=== PATIENT | male | born 1955 | race Caucasian/White ===

== ENCOUNTER 2017-05-04 20:23 | Inpatient (IN) | payer OTHER ==
[~2017-05-04] VITALS: Ht 162.6 cm; Wt 67.0 kg
[~2017-05-04 20:23] MED LIST: ASPI-664 PO; LISI-313 PO; METF500T4 PO; SIMV20TA2 PO
[2017-05-04 22:18] VITALS: PULSE 96
[2017-05-04 22:28] VITALS: BP 130/74; RESP 16
[2017-05-04 23:12] VITALS: Ht 162.6 cm; Wt 67.0 kg
[2017-05-04] MEDS ORDERED: LISI40TA9 PO (23:43)
[2017-05-05] VITALS (12 sets, daily range): BP systolic 93–126; BP diastolic 54–74; PULSE 74–92; RESP 16–20
[2017-05-05] MEDS ORDERED: ONDANSETRON 4 MG INJ IV PRN
[2017-05-05] MEDS ORDERED: NACL 0.9% 3 ML SYG IV SCH
[2017-05-05] MEDS ORDERED: ACETAMINOPHEN 325 MG TAB PO PRN
[2017-05-05 01:23] LABS: ADD SCAN DIFF NO
[2017-05-05 01:42] LABS: BASOPHIL # 0.1 10^3/ul (0.0-0.1); BASOPHILS % 0.7 % (0.0-2.0); EOSINOPHILS # 0.2 10^3/ul (0.0-0.5); EOSINOPHILS % 2.4 % (0.0-7.0); HEMATOCRIT 35.3 % (42.0-52.0); HEMOGLOBIN 11.6 g/dl (14.0-18.0); LYMPHOCYTES % 27.8 % (15.0-51.0); MEAN CORPUSCULAR HGB CONC 32.9 g/dl (32.0-37.0); MEAN CORPUSCULAR VOLUME 100.6 fl (82.0-101.0); MEAN PLATELET VOLUME 10.7 fl (7.4-10.4); MONOCYTE # 0.9 10^3/ul (0.3-0.9); MONOCYTES % 11.9 % (0.0-11.0); NEUTROPHIL # 4.1 10^3/ul (1.6-7.5); NEUTROPHILS % 56.8 % (39.0-77.0); PLATELET COUNT 199 10^3/UL (140-415); RED BLOOD COUNT 3.51 10^6/ul (4.70-6.10); RED CELL DISTRIBUTION WIDTH 12.4 % (11.5-14.5); WHITE BLOOD COUNT 7.2 10^3/ul (4.8-10.8)
[2017-05-05 02:12] LABS: ALBUMIN 4.6 g/dl (3.3-4.9); ALBUMIN/GLOBULIN RATIO 1.58; BILIRUBIN,INDIRECT 0.3 mg/dl (0-1.1); BILIRUBIN,TOTAL 0.3 mg/dl (0.2-1.3); CALCIUM 9.6 mg/dl (8.4-10.2); CREATININE 2.2 mg/dl (0.61-1.24); POTASSIUM 4.8 mmol/L (3.5-5.1); TOTAL PROTEIN 7.5 g/dl (6.1-8.1)
[2017-05-05 03:53] LABS: ADD UMIC YES; UR ASCORBIC ACID NEGATIVE (NEGATIVE); UR BILIRUBIN (Dip) NEGATIVE (NEGATIVE); UR BLOOD (Dip) 1+ mg/dL (NEGATIVE); UR CLARITY CLEAR (CLEAR); UR COLOR YELLOW (YELLOW); UR GLUCOSE (Dip) NEGATIVE (NEGATIVE); UR KETONES (Dip) NEGATIVE (NEGATIVE); UR LEUKOCYTE ESTERASE (Dip) NEGATIVE Leu/ul (NEGATIVE); UR NITRITE (Dip) NEGATIVE (NEGATIVE); UR RBC 0 /HPF (0-5); UR SPECIFIC GRAVITY (Dip) 1.014 (1.003-1.030); UR TOTAL PROTEIN (Dip) NEGATIVE (NEGATIVE); UR UROBILINOGEN (Dip) NEGATIVE (NEGATIVE)
[2017-05-05] MEDS ORDERED: PANTOPRAZOLE 40 MG INJ IV SCH (06:00)
[2017-05-05 07:58] LABS: ADD SCAN DIFF NO
[2017-05-05 08:13] LABS: BASOPHILS % 0.7 % (0.0-2.0); EOSINOPHILS # 0.2 10^3/ul (0.0-0.5); EOSINOPHILS % 2.6 % (0.0-7.0); HEMATOCRIT 36.1 % (42.0-52.0); HEMOGLOBIN 11.9 g/dl (14.0-18.0); LYMPHOCYTES # 1.6 10^3/ul (0.8-2.9); LYMPHOCYTES % 26.7 % (15.0-51.0); MEAN CORPUSCULAR HEMOGLOBIN 33.6 pg (29.0-33.0); MEAN PLATELET VOLUME 10.9 fl (7.4-10.4); MONOCYTE # 0.5 10^3/ul (0.3-0.9); MONOCYTES % 9.2 % (0.0-11.0); NEUTROPHIL # 3.6 10^3/ul (1.6-7.5); NEUTROPHILS % 60.6 % (39.0-77.0); PLATELET COUNT 190 10^3/UL (140-415); RED BLOOD COUNT 3.54 10^6/ul (4.70-6.10); RED CELL DISTRIBUTION WIDTH 12.4 % (11.5-14.5); WHITE BLOOD COUNT 5.9 10^3/ul (4.8-10.8)
[2017-05-05 08:39] LABS: ALBUMIN 4.8 g/dl (3.3-4.9); ALBUMIN/GLOBULIN RATIO 1.71; BILIRUBIN,INDIRECT 0.4 mg/dl (0-1.1); BILIRUBIN,TOTAL 0.4 mg/dl (0.2-1.3); CALCIUM 9.6 mg/dl (8.4-10.2); CHOL/HDL RATIO 6.2 RATIO; CREATININE 1.66 mg/dl (0.61-1.24); MAGNESIUM 2.6 mg/dl (1.7-2.5); POTASSIUM 5.5 mmol/L (3.5-5.1); TOTAL PROTEIN 7.6 g/dl (6.1-8.1)
--- NOTE | 2017-05-05 08:43 | HP ---
Date/Time of Note Date/Time of Note DATE: 05/05/17 TIME: 08:32 Assessment/Plan VTE Prophylaxis VTE Prophylaxis Intervention: SCD's Lines/Catheters IV C[facility]ter [facility]from [facility]): Saline Lock Assessment/Plan Chief Complaint/Hosp Course This is a 62-year-old male being admitted to the telemetry floor for: #1 Chronic kidney disease: Patient is nonoliguric. His potassium at the transferring facility was 5.4. BUN of 95 and creatinine of 4.02. Ultrasound of the kidneys from the transferring facility showed echogenic kidneys, please see u/s report for further details. Will consult nephrology for further treatment strategy. Will repeat electrolytes in the a.m. Will check urine sodium. Will hold ADRIANO inhibitor #2 neck pain: Patient had CT of the head the density was order x-rays of the neck to further evaluate. May need additional imaging studies. #3 diabetes mellitus: We will hold ADRIANO at this time secondary to #1. Will check hemoglobin A1c with the patient on insulin sliding scale. #4 hypertension: We will hold ADRIANO inhibitor for now. Secondary to #1 continue to monitor blood pressure #5 DVT and GI prophylaxis: SCDs, Protonix Further treatment strategy as per the clinical course Problems: HPI/ROS Admit Date/Time Admit Date/Time May 04, 2017 at 22:02 Hx of Present Illness Chief complaint: Neck pain and weakness 3 weeks This is a 62-year-old male being transferred from an outside facility with neck pain and weakness for the past 3 weeks. Patient states that he has been noticing aching pain in his neck as well as shoulders. Also states that he has been weak. Denies any nausea vomiting or diarrhea. Allergies: NKDA Medications: See [facility] Const: As per HPI Eyes : No pain discharge or redness or change in visual acuity ENT: No pain, sore throat, congestion, congestion, dysphagia or discharge Respiratory: No shortness of breath, cough, sputum, wheezing, or pleuritic pain Cardiovascular: No chest pain, palpitation, PND, or edema GI : no change in appetite, abdominal pain, nausea, vomiting, diarrhea, constipation, or change in the color his stool Genitourinary: No dysuria, hematuria, flank pain , discharge or CVA tenderness Musculoskeletal: As per HPI Skin: No rash, bruising or hives Neuro: No headache, dizziness, syncope, seizure, focal weakness Endocrine: No polyuria, polydipsia, temperature intolerance Psych: No hallucination, depression, anxiety or suicidal ideation PMH/Family/Social Past Medical History Diabetes mellitus, hypertension, CKD Past Surgical History Hernia repair Family History Significant Family History: other (Diet: Throat cancer) Social History Alcohol Use: none Smoking Status: Former smoker Drug Use: none Exam/Review of Systems Vital Signs Vitals Vital Signs Date Time Temp Pulse Resp B/P Pulse Ox O2 Delivery O2 Flow Rate FiO2 05/05/17 07:41 98.4 71 18 93/63 98 Intake and Output 05/04/17 05/04/17 05/05/17 15:00 23:00 07:00 Intake Total 400 ml Output Total 600 ml Balance -200 ml Exam Exam General: Patient is well-developed well-nourished The patient is alert oriented -3 lying comfortably in bed. HEENT: Atraumatic, normocephalic. The pupils are equal, round and reactive. Extraocular motor are intact Neck: Tenderness to palpation along the posterior neck, no step-off appreciated Chest: Nontender Lungs: Clear to auscultation bilaterally no crackles rales or wheezing Heart: Normal S1-S2, Regular rhythm and rate. No murmur, S3, or S4 Abdomen: Soft , nontender, nondistended , bowel sounds are present. No guarding no rebound tenderness , No masses or organomegaly. No costovertebral temporal angle mass Extremities: Normal to inspection, no edema no cyanosis Neurologic: Normal mental status, speech normal, cranial nerves II through XII are intact, motor and sensory are intact, no focal weakness Additional Comments CT of the head was unremarkable Ultrasound of the kidneys: Echogenic kidneys White blood cell count 10 hemoglobin 12 hematocrit 38 platelets 186 Sodium 138 potassium 5.4 chloride 102 bicarb 17 BUN 95 creatinine 4.02 Please see transfer paperwork for further details regarding labs and imaging studies. Labs Result Diagram: 05/05/17 0700 05/05/17 0045 Medications Medications Current Medications Ondansetron HCl (Zofran Inj) 4 mg Q6H PRN IV NAUSEA AND/OR VOMITING; Start at 00:00 Acetaminophen (Tylenol Tab) 650 mg Q6H PRN PO PAIN LEVEL 1-3 OR FEVER; Start at 00:00 Pantoprazole (Protonix Iv) 40 mg DAILY@06 IV Last administered on 05/05/17 06: 14; Admin Dose 40 MG; Start 05/05/17 at 06:00 Aspirin (Halfprin) 81 mg DAILY PO ; Start 05/05/17 at 09:00 Atorvastatin Calcium (Lipitor) 10 mg DAILY@ PO ; Start 05/05/17 at 21:00 ANMOL KNOWLES May 05, 2017 08:42
[2017-05-05] MEDS: ASPIRIN (EC) 81 MG TAB PO SCH (08:57)
[2017-05-05] MEDS ORDERED: GLUCOSE GEL 15 GRAM TUBE BUCCAL PRN (09:00)
[2017-05-05] MEDS ORDERED: DEXTROSE 50% 50 ML SYRINGE IV PRN ×2 (09:00)
[2017-05-05] MEDS ORDERED: GLUCAGON 1 MG INJ IM PRN (09:00)
[2017-05-05] MEDS ORDERED: GLUCOSE GEL 15 GRAM TUBE PO PRN ×2 (09:00)
[2017-05-05 09:30] LABS: THYROID STIMULATING HORMONE 1.68 MIU/L (0.465-4.680)
--- NOTE | 2017-05-05 09:38 | PN ---
Date/Time of Note Date/Time of Note DATE: 05/05/17 TIME: 09:08 Assessment/Plan VTE Prophylaxis VTE Prophylaxis Intervention: SCD's Lines/Catheters IV Catheter Type (from [facility]rs[facility]): Saline Lock Assessment/Plan Assessment/Plan This is a 62-year-old male being admitted to the telemetry floor for: #1 Dizziness and Neck pain * May be 2/2 #2, but will need CVA workup #2 BOYD with Hyperkalemia r/o CKD: patient has never been told in the past that he has kidney problems #3 Neck pain: ?Msc spasm #4 Diabetes mellitus type 2: fair control #5 Hypertension: controlled PLAN: * MRI brain / carotids / CT neck / msc relaxant / 2D echo * IVF / nephrology consult / serial labs / ?renal USS * Continue SSI and switch home metformin for Lantus / start ACEi when renal function improved * Supportive care * DVT and GI prophylaxis: SCDs, Protonix * Further treatment strategy as per the clinical course Subjective 24 Hr Interval Summary Free Text/Dictation Patient seen and examined. feels slightly better Dizziness is somewhat improved, but continues to have pain in posterior neck Exam/Review of Systems Vital Signs Vitals Vital Signs Date Time Temp Pulse Resp B/P Pulse Ox O2 Delivery O2 Flow Rate FiO2 05/05/17 08:00 76 05/05/17 07:41 98.4 18 93/63 98 Intake and Output 05/04/17 05/04/17 05/05/17 15:00 23:00 07:00 Intake Total 400 ml Output Total 600 ml Balance -200 ml Exam Constitutional: alert, oriented, No distress Psych: anxiety Head: atraumatic, normocephalic Eyes: PERRL, No icteric ENMT: mucosa pink and moist Neck: other (?msc spasm), No bruits, No jvd Respiratory: clear to auscultation, diminished breath sounds, No crackles/rales, No labored breathing, No wheezing Cardiovascular: regular rate and rhythm, No murmurs/extra sounds Gastrointestinal: bowel sounds, non-tender, soft Extremities: No edema Neurological: No focal weakness Results Result Diagram: 05/05/17 0700 05/05/17 0045 Results 24 hrs Laboratory Tests Test 05/04/17 22:51 05/05/17 00:45 05/05/17 01:25 05/05/17 07:00 Bedside Glucose 171 White Blood Count 7.2 5.9 Red Blood Count 3.51 #L 3.54 L Hemoglobin 11.6 #L 11.9 L Hematocrit 35.3 #L 36.1 L Mean Corpuscular Volume 100.6 102.0 H Mean Corpuscular Hemoglobin 33.0 33.6 H Mean Corpuscular Hemoglobin Concent 32.9 33.0 Red Cell Distribution Width 12.4 12.4 Platelet Count 199 190 Mean Platelet Volume 10.7 #H 10.9 H Neutrophils % 56.8 60.6 Lymphocytes % 27.8 26.7 Monocytes % 11.9 H 9.2 Eosinophils % 2.4 2.6 Basophils % 0.7 0.7 Nucleated Red Blood Cells % 0.0 0.0 Neutrophils # 4.1 3.6 Lymphocytes # 2.0 1.6 Monocytes # 0.9 0.5 Eosinophils # 0.2 0.2 Basophils # 0.1 0.0 Nucleated Red Blood Cells # 0.0 0.0 Sodium Level 135 Potassium Level 4.8 Chloride Level 107 Carbon Dioxide Level 22 Anion Gap 11 Blood Urea Nitrogen 77 H Creatinine 2.20 H Glucose Level 131 Calcium Level 9.6 Total Bilirubin 0.3 Direct Bilirubin 0.00 Indirect Bilirubin 0.3 Aspartate Amino Transf (AST/SGOT) 17 Alanine Aminotransferase (ALT/SGPT) 20 Alkaline Phosphatase 58 Total Protein 7.5 Albumin 4.6 Globulin 2.90 Albumin/Globulin Ratio 1.58 Urine Color YELLOW Urine Clarity CLEAR Urine pH 5.0 Urine Specific [place] 1.014 Urine Ketones NEGATIVE Urine Nitrite NEGATIVE Urine Bilirubin NEGATIVE Urine Urobilinogen NEGATIVE Urine Leukocyte Esterase NEGATIVE Urine Microscopic RBC 0 Urine Microscopic WBC 0 Urine Hemoglobin 1+ H Urine Random Sodium 82 Urine Glucose NEGATIVE Urine Total Protein NEGATIVE Test 05/05/17 07:44 Bedside Glucose 153 Medications Medications Current Medications Ondansetron HCl (Zofran Inj) 4 mg Q6H PRN IV NAUSEA AND/OR VOMITING; Start at 00:00 Acetaminophen (Tylenol Tab) 650 mg Q6H PRN PO PAIN LEVEL 1-3 OR FEVER; Start at 00:00 Pantoprazole (Protonix Iv) 40 mg DAILY@06 IV Last administered on 05/05/17t 06: 14; Admin Dose 40 MG; Start 05/05/17 at 06:00 Aspirin (Halfprin) 81 mg DAILY PO Last administered on 05/05/17t 08:57; Admin Dose 81 MG; Start 05/05/17 at 09:00 Atorvastatin Calcium (Lipitor) 10 mg DAILY@21 PO ; Start 05/05/17 at 21:00 Diagnostic Test (Pha) (Accu-Chek) 1 ea 02 XX ; Start 05/06/17 at 02:00 Insulin Glargine (Lantus) 13 unit DAILY@08 SC ; Start 05/06/17 at 08:00 Diagnostic Test (Pha) (Accu-Chek) 1 ea 02 XX ; Start 05/06/17 at 02:00 Miscellaneous Information 1 ea NOTE XX ; Start 05/05/17 at 09:00 Glucose (Glutose) 15 gm Q15M PRN PO DECREASED GLUCOSE; Start 05/05/17 at 09:00 Glucose (Glutose) 22.5 gm Q15M PRN PO DECREASED GLUCOSE; Start 05/05/17 at 09: 00 Dextrose (D50w Syringe) 25 ml Q15M PRN IV DECREASED GLUCOSE; Start 05/05/17 at 09:00 Dextrose (D50w Syringe) 50 ml Q15M PRN IV DECREASED GLUCOSE; Start 05/05/17 at 09:00 Glucagon (Glucagen) 1 mg Q15M PRN IM DECREASED GLUCOSE; Start 05/05/17 at 09:00 Glucose (Glutose) 15 gm Q15M PRN BUCCAL DECREASED GLUCOSE; Start 05/05/17 at 09 :00 ANDRIY LEA May 05, 2017 09:18
--- NOTE | 2017-05-05 10:10 | CONS ---
Date/Time of Note Date/Time of Note DATE: 05/05/17 TIME: 10:05 Assessment/Plan Assessment/Plan Chief Complaint/Hosp Course 1. CKD3- + ARF- agree with holding acei. Watch uop, i/o, avoid nephrotoxins, watch uop. -likely cause hemodynamic, ua bland. -need to r/o obstruction, will repeat us. -check urine lytes to eval fena. 2. htn- cont meds, no acei for now 3. hyperkalemia- cont ivf, s/p kayexalate Problems: Consultation Date/Type/Reason Admit Date/Time May 04, 2017 at 22:02 Date of Consultation: May 05, 2017 Reason for Consultation ARF/CKD/Hyperkalemia Hx of Present Illness 62 y/o male from outside facility admitted for weakness and lower back pain. Pt. has h/o ckd, rececnt us showed echogenic kidneys???baseline, on admit has arf and hyperkalemia. Pt. given kayexalate and taken off acei now feels better, creat cont to improve. Initial urine was bland and non reveling. case d/w rn at bedside. Constitutional: improved, no complaints Eyes: no complaints ENT: no complaints Respiratory: no complaints Cardiovascular: no complaints Gastrointestinal: no complaints Genitourinary: no complaints Skin: no complaints Neurologic: no complaints Endocrine: no complaints Lymphatic: no complaints Past Medical History Medical History: no pertinent history Past Surgical History Past Surgical Hx: no surgical history Social History Alcohol Use: none Smoking Status: Former smoker Drug Use: none Exam/Review of Systems Vital Signs Vitals Vital Signs Date Time Temp Pulse Resp B/P Pulse Ox O2 Delivery O2 Flow Rate FiO2 05/05/17 08:00 76 05/05/17 07:41 98.4 18 93/63 98 Intake and Output 05/04/17 05/04/17 05/05/17 15:00 23:00 07:00 Intake Total 400 ml Output Total 600 ml Balance -200 ml Exam Constitutional: alert, oriented, well developed Psych: nl mood/affect, no complaints, No anxiety, No confusion, No depression, No other, No suicidal Head: atraumatic, normocephalic Eyes: EOMI, PERRL, nl conjunctiva, nl lids, nl sclera ENMT: nl external ears & nose, nl lips & teeth, nl nasal mucosa & septum Neck: non-tender, supple Respiratory: clear to auscultation, normal air movement Cardiovascular: nl pulses, regular rate and rhythm Gastrointestinal: nl liver, spleen, non-tender, soft Musculoskeletal: joint tenderness, nl extremities to inspection, nl gait and stance Extremities: normal pulses Neurological: [employer] L[employer] WORK[employer] II-XII intact, nl mental status, nl speech, nl strength Results Result Diagram: 05/05/17 0700 05/05/17 0701 Results 24 hrs Laboratory Tests Test 05/04/17 22:51 05/05/17 00:45 05/05/17 01:25 05/05/17 07:00 Bedside Glucose 171 White Blood Count 7.2 5.9 Red Blood Count 3.51 #L 3.54 L Hemoglobin 11.6 #L 11.9 L Hematocrit 35.3 #L 36.1 L Mean Corpuscular Volume 100.6 102.0 H Mean Corpuscular Hemoglobin 33.0 33.6 H Mean Corpuscular Hemoglobin Concent 32.9 33.0 Red Cell Distribution Width 12.4 12.4 Platelet Count 199 190 Mean Platelet Volume 10.7 #H 10.9 H Neutrophils % 56.8 60.6 Lymphocytes % 27.8 26.7 Monocytes % 11.9 H 9.2 Eosinophils % 2.4 2.6 Basophils % 0.7 0.7 Nucleated Red Blood Cells % 0.0 0.0 Neutrophils # 4.1 3.6 Lymphocytes # 2.0 1.6 Monocytes # 0.9 0.5 Eosinophils # 0.2 0.2 Basophils # 0.1 0.0 Nucleated Red Blood Cells # 0.0 0.0 Sodium Level 135 Potassium Level 4.8 Chloride Level 107 Carbon Dioxide Level 22 Anion Gap 11 Blood Urea Nitrogen 77 H Creatinine 2.20 H Glucose Level 131 Calcium Level 9.6 Total Bilirubin 0.3 Direct Bilirubin 0.00 Indirect Bilirubin 0.3 Aspartate Amino Transf (AST/SGOT) 17 Alanine Aminotransferase (ALT/SGPT) 20 Alkaline Phosphatase 58 Total Protein 7.5 Albumin 4.6 Globulin 2.90 Albumin/Globulin Ratio 1.58 Urine Color YELLOW Urine Clarity CLEAR Urine pH 5.0 Urine Specific [place] 1.014 Urine Ketones NEGATIVE Urine Nitrite NEGATIVE Urine Bilirubin NEGATIVE Urine Urobilinogen NEGATIVE Urine Leukocyte Esterase NEGATIVE Urine Microscopic RBC 0 Urine Microscopic WBC 0 Urine Hemoglobin 1+ H Urine Random Sodium 82 Urine Glucose NEGATIVE Urine Total Protein NEGATIVE Test 05/05/17 07:01 05/05/17 07:44 Sodium Level 139 Potassium Level 5.5 H Chloride Level 110 Carbon Dioxide Level 19 L Anion Gap 16 Blood Urea Nitrogen 69 H Creatinine 1.66 H Glucose Level 168 Calcium Level 9.6 Magnesium Level 2.6 H Total Bilirubin 0.4 Direct Bilirubin 0.00 Indirect Bilirubin 0.4 Aspartate Amino Transf (AST/SGOT) 18 Alanine Aminotransferase (ALT/SGPT) 24 Alkaline Phosphatase 57 Total Protein 7.6 Albumin 4.8 Globulin 2.80 Albumin/Globulin Ratio 1.71 Triglycerides Level 246 H Cholesterol Level 212 H LDL Cholesterol, Calculated 129 HDL Cholesterol 34 Cholesterol/HDL Ratio 6.2 Thyroid Stimulating Hormone (TSH) 1.680 Bedside Glucose 153 Medications Medications Current Medications Ondansetron HCl (Zofran Inj) 4 mg Q6H PRN IV NAUSEA AND/OR VOMITING; Start at 00:00 Acetaminophen (Tylenol Tab) 650 mg Q6H PRN PO PAIN LEVEL 1-3 OR FEVER; Start at 00:00 Pantoprazole (Protonix Iv) 40 mg DAILY@06 IV Last administered on 05/05/17 06: 14; Admin Dose 40 MG; Start 05/05/17 at 06:00 Aspirin (Halfprin) 81 mg DAILY PO Last administered on 05/05/17 08:57; Admin Dose 81 MG; Start 05/05/17 at 09:00 Atorvastatin Calcium (Lipitor) 10 mg DAILY@21 PO ; Start 05/05/17 at 21:00 Diagnostic Test (Pha) (Accu-Chek) 1 ea 02 XX ; Start 05/06/17 at 02:00 Diagnostic Test (Pha) (Accu-Chek) 1 ea 02 XX ; Start 05/06/17 at 02:00 Miscellaneous Information 1 ea NOTE XX ; Start 05/05/17 at 09:00 Glucose (Glutose) 15 gm Q15M PRN PO DECREASED GLUCOSE; Start 05/05/17 at 09:00 Glucose (Glutose) 22.5 gm Q15M PRN PO DECREASED GLUCOSE; Start 05/05/17 at 09: 00 Dextrose (D50w Syringe) 25 ml Q15M PRN IV DECREASED GLUCOSE; Start 05/05/17 at 09:00 Dextrose (D50w Syringe) 50 ml Q15M PRN IV DECREASED GLUCOSE; Start 05/05/17 at 09:00 Glucagon (Glucagen) 1 mg Q15M PRN IM DECREASED GLUCOSE; Start 05/05/17 at 09:00 Glucose (Glutose) 15 gm Q15M PRN BUCCAL DECREASED GLUCOSE; Start 05/05/17 at 09 :00 Insulin Glargine (Lantus) 13 unit DAILY@08 SC ; Start 05/05/17 at 09:30 ESTHER COLÓN MD May 05, 2017 10:10
[2017-05-05 10:24] LABS: CREATINE KINASE 140 IU/L (23-200)
[2017-05-05] MEDS ORDERED: NA POLYST SULFON 15 GM/60 ML BTL PO ONE (10:30)
[2017-05-05] MEDS: INSULIN GLARGINE [LANtus] 3 ML PEN SC SCH (10:39)
[2017-05-05 10:45] LABS: CK-MB 1.05 ng/ml (0.0-2.4); TROPONIN-I < 0.012 ng/ml (0.00-0.12)
[2017-05-05] MEDS: SOD CHLORIDE 0.45% 1,000 ML IV SCH (10:45)
[2017-05-05] MEDS: INSULIN ASPART [NOVOLOG] 3 ML PEN SC SCH ×3 (11:50→20:38)
--- NOTE | 2017-05-05 11:53 | RADRPT ---
PROCEDURE: CT scan of the neck without contrast. CLINICAL INDICATION: Neck pain, dizziness TECHNIQUE: CT scan of the neck was performed. The patient was examined without the use of intrave nous iodinated contrast. No reported complications occurred. One or more of the following dose re duction techniques were used: Automated exposure control, Adjustment of the mA and/or kV according t o patient size, and/or use of iterative reconstruction technique. DOSE: CTDI = 9 mGy and the DLP = 230 mGy-cm. COMPARISON: None available FINDINGS: Evaluation of the soft tissues and vasculature is limited without contrast. No cervical lymphadenopathy. The bilateral parotid and submandibular glands are unremarkable The thyroid gland is unremarkable. No significant airway narrowing The bilateral prestyloid parapharyngeal spaces and retropharyngeal s paces are unremarkable. Carotid vascular calcifications. Paranasal sinus mucosal thickening without layering sinus fluid visualized. Multilevel degenerative changes of the cervical spine. Foraminal narrowings are mild to moderate le ft C3-4, severe right and mild left C4-5, moderate bilateral C5-6. No high-grade bony cervical spin al canal stenosis. The visualized lung apices are clear. IMPRESSION: Degenerative changes of the spine with multilevel foraminal narrowings as detailed. Carotid vascular calcifications. Paranasal sinus mucosal thickening without evidence of layering fluid. RPTAT: AA .Alverto Cm MD, MD Date Time Electronically viewed and signed by .Alverto Cm MD, on 05/05/2017 11:53 .T/
[2017-05-05] MEDS ORDERED: CYCLOBENZAPRINE 10 MG TAB PO PRN (13:00)
--- NOTE | 2017-05-05 13:26 | RADRPT ---
PROCEDURE: Renal US. CLINICAL INDICATION: Acute kidney injury. TECHNIQUE: Multiple sonographic images of the kidneys and urinary bladder were obtained. The imag es were reviewed on a PACS workstation. COMPARISON: No prior studies are available for comparison. FINDINGS: The right kidney measures 10.2 cm. The left kidney measures 10.6 cm. There is no renal mass. There is no hydronephrosis. There is no renal calculus. Renal parenchymal thickness is normal bilaterally. Echogenicity is normal bilaterally. The perirenal regions are normal with no fluid collection or mass. The urinary bladder is unremarkable. IMPRESSION: 1. Unremarkable renal ultrasound. RPTAT: QQ .Eduin Mathis MD, Date Time Electronically viewed and signed by .Eduin Mathis MD, on 05/05/2017 13:25 .R/
--- NOTE | 2017-05-05 13:42 | RADRPT ---
PROCEDURE: US carotid arteries. CLINICAL INDICATION: Dizziness. TECHNIQUE: Multiple sonographic images of the carotid arteries and vertebral arteries were obtaine d utilizing fraser scale, duplex, and color-flow imaging. The images were reviewed on a PACS workstati on. COMPARISON: No prior studies are available for comparison. FINDINGS: Evaluation of the right carotid bifurcation region reveals mild atherosclerotic disease. Evaluation of the left carotid bifurcation region reveals mild atherosclerotic disease. There is antegrade flow within the vertebral arteries bilaterally. RIGHT CAROTID MEASUREMENTS: Common Carotid [id number] (cm/sec) Internal Carotid Artery 91 (cm/sec) External Carotid Artery 64 (cm/sec) Vertebral Artery 64 (cm/sec) Internal Carotid/Common Carotid1.1 LEFT CAROTID MEASUREMENTS: Common Carotid [id number] (cm/sec) Internal Carotid Artery 73 (cm/sec) External Carotid Artery 83 (cm/sec) Vertebral Artery 57 (cm/sec) Internal Carotid/Common Carotid0.9 Validated velocity measurements with angiographic measurements. Velocity criteria are extrapolated f rom diameter data as defined by the Society of Radiologists in Ultrasound Consensus Conference. Radi ology 2003; 229;340-346. This study does indirectly reference the measurement of the distal ICA tylor meter as the denominator for stenosis measurement. IMPRESSION: 1. Less than 50% stenosis bilaterally in the internal carotid arteries. 2. Normal antegrade flow in the vertebral arteries bilaterally. RPTAT: QQ SRU Consensus Conference Criteria for the Diagnosis of Carotid Artery Stenosis* Degree of Stenosis, % ICA PSV, cm/sec Plaque Estimate, % ICA/CCA PSV Ratio Normal <125 None <2.0 <50 <125 <50 <2.0 50 69 125-230 >50 2.0-4.0 >70 but less than near occlusion >230 >50 <4.0 Near occlusion High, low, or undetectable Visible Variable Total occlusion Undetectable Visible, no detectable lumen Not applicable *Cartoid artery stenosis: fraser-scale and Doppler US diagnosis. Society of Radiologists in Ultrasound Consensus Conference. Radiology 2003; 229: 340-346 .Eduin Mathis MD, Date Time Electronically viewed and signed by .Eduin Mathis MD, on 05/05/2017 13:41 .R/
--- NOTE | 2017-05-05 18:50 | RADRPT ---
Echocardiogram Report Patient Name: JULIET HAMILTON Gender: Male Date: 1955 Study Date: 05-May-2017 Pvc Loader: Sandra Slater RDCS Location: 520 Ref. Physician: ANDRIY LEA Quality: Good Procedures: Transthoracic echocardiogram with complete 2D, M-Mode, and doppler examination. Indications: Dizziness. 2D/M Mode Doppler Measurement Value Normal Ranges Measurement Value Normal Ranges LVIDd 2D 3.7 3.5 - 5.6 cm MARIO Vmax 3.0 cm2 LVIDs 2D 2.3 2.1 - 4.1 cm MARIO VTI 3.0 cm2 LVPWd 2D 1.1 0.6 - 1.1 cm AV Mean Nate 0.9 m/sec IVSd 2D 1.1 0.6 - 1.1 cm AV Mean PG 3.8 mmHg AoR Diam 2D 3.0 2.0 - 3.7 cm AV Peak Nate 1.4 m/sec EDV 2D 59.6 cm3 AV Peak PG 7.4 mmHg ESV 2D 12.8 cm3 AV VTI 20.7 cm LA Dimen 2D 2.5 2.3 - 4.0 cm LVOT Mean Nate 0.7 m/sec LVOT Diam 2.2 cm LVOT Mean PG 2.2 mmHg LVOT Peak Nate 1.1 m/sec LVOT Peak PG 4.6 mmHg LVOT VTI 17.8 cm MV E Peak Nate 0.6 m/sec MV A Peak Nate 0.7 m/sec MV E/A 0.9 MV Decel Time 222 msec MV Decel [place] 3 MV E/A 0.9 TR Peak Nate 2.6 m/sec TR Peak PG 34.2 mmHg RVSP 37.2 mmHg Findings Left Ventricle: Normal left ventricular systolic function. Normal left ventricular cavity size. Tissue Doppler/Mitral Doppler indices are within normal limits. Right Ventricle: Mild enlargement of right ventricle. Left Atrium: The left atrium is normal in size. Right Atrium: Not well visualized. There is mild enlargement of right atrium. Mitral Valve: Mitral valve is not well visualized. Trace mitral regurgitation. Aortic Valve: Aortic valve not well visualized. Tricuspid Valve: Estimated peak PA systolic pressure 37 mmHg. There is mild tricuspid regurgitation. Pulmonic Valve: Normal pulmonic valve appearance. Pericardium: Not well visualized. Aorta: Normal aortic root. IVC: Normal size and normal respiratory collapse consistent with normal right atrial pressure. Pulmonary Artery: Not well visualized. Conclusions Technically difficult study with poor endocardial visualization. Normal left ventricular systolic function. Normal left ventricular cavity size. Tissue Doppler/Mitral Doppler indices are within normal limits. Mildly dilated RV with preserved systolic function. Mild tricuspid regurgitation. Estimated peak PA systolic pressure 37 mmHg based on RA pressure of 3 mmHg. Electronically Signed By: Bunny Squires 05-May-2017 18:49:42 -0700 Patient Name: JULIET HAMILTON Study Date: 05-May-2017 [id number]
[2017-05-05] MEDS: ATORVASTATIN 20 MG TAB PO SCH (20:35)
[2017-05-05] MEDS ORDERED: ATORVASTATIN 10 MG TAB PO SCH (21:00)
[2017-05-06] VITALS (12 sets, daily range): BP systolic 114–146; BP diastolic 67–81; PULSE 68–85; RESP 16–20
[2017-05-06] MEDS: SOD CHLORIDE 0.45% 1,000 ML IV SCH ×3 (01:17→20:26)
[2017-05-06] MEDS: ACCU-CHEK XX SCH ×4 (01:18→20:27)
[2017-05-06] MEDS: PANTOPRAZOLE (EC) 40 MG TAB PO SCH (06:12)
[2017-05-06 06:32] LABS: ADD SCAN DIFF NO
[2017-05-06 06:37] LABS: BASOPHIL # 0.1 10^3/ul (0.0-0.1); BASOPHILS % 0.7 % (0.0-2.0); EOSINOPHILS # 0.3 10^3/ul (0.0-0.5); HEMATOCRIT 34.8 % (42.0-52.0); HEMOGLOBIN 11.8 g/dl (14.0-18.0); LYMPHOCYTES # 1.8 10^3/ul (0.8-2.9); LYMPHOCYTES % 26.7 % (15.0-51.0); MEAN CORPUSCULAR HGB CONC 33.9 g/dl (32.0-37.0); MEAN CORPUSCULAR VOLUME 100.3 fl (82.0-101.0); MEAN PLATELET VOLUME 10.5 fl (7.4-10.4); MONOCYTE # 0.7 10^3/ul (0.3-0.9); MONOCYTES % 10.3 % (0.0-11.0); NEUTROPHIL # 3.9 10^3/ul (1.6-7.5); PLATELET COUNT 182 10^3/UL (140-415); RED BLOOD COUNT 3.47 10^6/ul (4.70-6.10); WHITE BLOOD COUNT 6.8 10^3/ul (4.8-10.8)
[2017-05-06 07:20] LABS: CALCIUM 9.4 mg/dl (8.4-10.2); CREATININE 1.09 mg/dl (0.61-1.24); MAGNESIUM 2.1 mg/dl (1.7-2.5); PHOSPHORUS 3.3 mg/dl (2.5-4.9)
[2017-05-06] MEDS ORDERED: INSULIN GLARGINE [LANtus] 3 ML PEN SC SCH (08:00)
[2017-05-06] MEDS: ASPIRIN (EC) 81 MG TAB PO SCH (09:23)
[2017-05-06] MEDS: INSULIN ASPART [NOVOLOG] 3 ML PEN SC SCH ×4 (09:27→20:22)
[2017-05-06] MEDS: INSULIN GLARGINE [LANtus] 3 ML PEN SC SCH (09:28)
--- NOTE | 2017-05-06 09:52 | CONS ---
Date/Time of Note Date/Time of Note DATE: 05/06/17 TIME: 09:42 Consult Date/Type/Reason Admit Date/Time May 04, 2017 at 22:02 Initial Consult Date 05/05/17 Subjective 62 y/o male from outside facility admitted for weakness and lower back pain. Pt. has h/o ckd, recent us showed echogenic kidneys???baseline, on admit has arf and hyperkalemia. Pt. given kayexalate and taken off acei now feels better, creat cont to improve. Initial urine was bland and non reveling. case d/w rn at bedside. Exam Constitutional: alert, oriented, well developed Psych: nl mood/affect, no complaints, No anxiety, No confusion, No depression, No other, No suicidal Head: atraumatic, normocephalic Eyes: EOMI, PERRL, nl conjunctiva, nl lids, nl sclera ENMT: nl external ears & nose, nl lips & teeth, nl nasal mucosa & septum Neck: non-tender, supple Respiratory: clear to auscultation, normal air movement Cardiovascular: nl pulses, regular rate and rhythm Gastrointestinal: nl liver, spleen, non-tender, soft Musculoskeletal: joint tenderness, nl extremities to inspection, nl gait and stance Extremities: normal pulses 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, nl mental status, nl speech, nl strength Objective Vital Signs Date Time Temp Pulse Resp B/P Pulse Ox O2 Delivery O2 Flow Rate FiO2 05/06/17 08:20 68 05/06/17 08:04 97.6 17 137/71 98 Intake and Output 05/05/17 05/05/17 05/06/17 15:00 23:00 07:00 Intake Total 600 ml 1850 ml Output Total 850 ml 1050 ml Balance -250 ml 800 ml Results/Medications Result Diagram: 05/06/17 0612 05/06/17 0614 Results 24 hrs Laboratory Tests Test 05/05/17 10:33 05/05/17 11:59 05/05/17 16:52 05/05/17 20:38 Bedside Glucose 111 133 171 139 Test 05/06/17 06:12 05/06/17 06:14 05/06/17 08:50 White Blood Count 6.8 Red Blood Count 3.47 L Hemoglobin 11.8 L Hematocrit 34.8 L Mean Corpuscular Volume 100.3 Mean Corpuscular Hemoglobin 34.0 H Mean Corpuscular Hemoglobin Concent 33.9 Red Cell Distribution Width 12.0 Platelet Count 182 Mean Platelet Volume 10.5 H Neutrophils % 58.0 Lymphocytes % 26.7 Monocytes % 10.3 Eosinophils % 4.0 Basophils % 0.7 Nucleated Red Blood Cells % 0.0 Neutrophils # 3.9 Lymphocytes # 1.8 Monocytes # 0.7 Eosinophils # 0.3 Basophils # 0.1 Nucleated Red Blood Cells # 0.0 Sodium Level 140 Potassium Level 5.0 Chloride Level 104 Carbon Dioxide Level 23 Anion Gap 18 H Blood Urea Nitrogen 51 H Creatinine 1.09 Glucose Level 128 # Calcium Level 9.4 Phosphorus Level 3.3 Magnesium Level 2.1 Bedside Glucose 146 Medications Current Medications Ondansetron HCl (Zofran Inj) 4 mg Q6H PRN IV NAUSEA AND/OR VOMITING; Start at 00:00 Acetaminophen (Tylenol Tab) 650 mg Q6H PRN PO PAIN LEVEL 1-3 OR FEVER; Start at 00:00 Aspirin (Halfprin) 81 mg DAILY PO Last administered on 05/05/17t 08:57; Admin Dose 81 MG; Start 05/05/17 at 09:00 Diagnostic Test (Pha) (Accu-Chek) 1 ea 02 XX ; Start 05/06/17 at 02:00 Diagnostic Test (Pha) (Accu-Chek) 1 ea 02 XX ; Start 05/06/17 at 02:00 Miscellaneous Information 1 ea NOTE XX ; Start 05/05/17 at 09:00 Glucose (Glutose) 15 gm Q15M PRN PO DECREASED GLUCOSE; Start 05/05/17 at 09:00 Glucose (Glutose) 22.5 gm Q15M PRN PO DECREASED GLUCOSE; Start 05/05/17 at 09: 00 Dextrose (D50w Syringe) 25 ml Q15M PRN IV DECREASED GLUCOSE; Start 05/05/17 at 09:00 Dextrose (D50w Syringe) 50 ml Q15M PRN IV DECREASED GLUCOSE; Start 05/05/17 at 09:00 Glucagon (Glucagen) 1 mg Q15M PRN IM DECREASED GLUCOSE; Start 05/05/17 at 09:00 Glucose (Glutose) 15 gm Q15M PRN BUCCAL DECREASED GLUCOSE; Start 05/05/17 at 09 :00 Insulin Glargine 13 unit 13 unit DAILY@08 SC Last administered on 05/05/17 10: 39; Admin Dose 13 UNIT; Start 05/05/17 at 09:30 Sodium Chloride (1/2 NS) 1,000 ml @ 80 mls/hr [id number] IV Last administered on 05/06/17 01:17; Admin Dose 80 MLS/HR; Start 05/05/17 at 10:30 Cyclobenzaprine HCl (Flexeril) 5 mg Q8H PRN PO neck pain; Start 05/05/17 at 13: 00 Atorvastatin Calcium (Lipitor) 20 mg DAILY@21 PO Last administered on 20:35; Admin Dose 20 MG; Start 05/05/17 at 21:00 Pantoprazole (Protonix Tab) 40 mg DAILY@06 PO Last administered on 05/06/17 06 :12; Admin Dose 40 MG; Start 05/06/17 at 06:00 Assessment/Plan Chief Complaint/Hosp Course 1. CKD + ARF-improved rapidly with volume and with holding acei. Watch uop, i/o , avoid nephrotoxins, watch uop. -likely cause hemodynamic, ua bland. -watch for diuretic phase of fredo with electrolyte wasting. 2. htn- cont meds, no acei for now 3. hyperkalemia- cont ivf, s/p kayexalate Problems: HERNAN MAURICIO MD May 06, 2017 09:52
--- NOTE | 2017-05-06 11:27 | PN ---
Date/Time of Note Date/Time of Note DATE: 05/06/17 TIME: 11:27 Assessment/Plan VTE Prophylaxis VTE Prophylaxis Intervention: SCD's Lines/Catheters IV [facility]ter [facility]from [facility]): Peripheral IV Urinary Cath still in place: No Assessment/Plan Assessment/Plan This is a 62-year-old male being admitted to the telemetry floor for: #1 Dizziness: likely 2/2 #2: now resolved #2 BOYD with Hyperkalemia : resolved #3 Neck pain likely 2/2 Msc spasm #4 Diabetes mellitus type 2: fair control #5 Hypertension: controlled PLAN: * f/u final MRI report / d/c home if normal * Continue SSI and Lantus / start ACEi * Supportive care * DVT and GI prophylaxis: SCDs, Protonix * Further treatment strategy as per the clinical course Subjective 24 Hr Interval Summary Free Text/Dictation patient seen and evaluated Feels well and is requesting to be discharged. Exam/Review of Systems Vital Signs Vitals Vital Signs Date Time Temp Pulse Resp B/P Pulse Ox O2 Delivery O2 Flow Rate FiO2 05/06/17 08:20 68 05/06/17 08:04 97.6 17 137/71 98 Intake and Output 05/05/17 05/05/17 05/06/17 15:00 23:00 07:00 Intake Total 600 ml 1850 ml Output Total 850 ml 1050 ml Balance -250 ml 800 ml Exam Constitutional: alert, oriented Head: atraumatic, normocephalic Neck: non-tender today , supple Respiratory: clear to auscultation Cardiovascular: regular rate and rhythm Gastrointestinal: S/ NT / ND / +BS Extremities: no edema, good radial pulses Results Result Diagram: 05/06/1712 05/06/17 0614 Results 24 hrs Laboratory Tests Test 05/05/17 11:59 05/05/17 16:52 05/05/17 20:38 05/06/17 06:12 Bedside Glucose 133 171 139 White Blood Count 6.8 Red Blood Count 3.47 L Hemoglobin 11.8 L Hematocrit 34.8 L Mean Corpuscular Volume 100.3 Mean Corpuscular Hemoglobin 34.0 H Mean Corpuscular Hemoglobin Concent 33.9 Red Cell Distribution Width 12.0 Platelet Count 182 Mean Platelet Volume 10.5 H Neutrophils % 58.0 Lymphocytes % 26.7 Monocytes % 10.3 Eosinophils % 4.0 Basophils % 0.7 Nucleated Red Blood Cells % 0.0 Neutrophils # 3.9 Lymphocytes # 1.8 Monocytes # 0.7 Eosinophils # 0.3 Basophils # 0.1 Nucleated Red Blood Cells # 0.0 Test 05/06/17 06:14 05/06/17 08:50 Sodium Level 140 Potassium Level 5.0 Chloride Level 104 Carbon Dioxide Level 23 Anion Gap 18 H Blood Urea Nitrogen 51 H Creatinine 1.09 Glucose Level 128 # Calcium Level 9.4 Phosphorus Level 3.3 Magnesium Level 2.1 Bedside Glucose 146 Medications Medications Current Medications Ondansetron HCl (Zofran Inj) 4 mg Q6H PRN IV NAUSEA AND/OR VOMITING; Start at 00:00 Acetaminophen (Tylenol Tab) 650 mg Q6H PRN PO PAIN LEVEL 1-3 OR FEVER; Start at 00:00 Aspirin (Halfprin) 81 mg DAILY PO Last administered on 05/06/17 09:23; Admin Dose 81 MG; Start 05/05/17 at 09:00 Diagnostic Test (Pha) (Accu-Chek) 1 ea 02 XX ; Start 05/06/17 at 02:00 Diagnostic Test (Pha) (Accu-Chek) 1 ea 02 XX ; Start 05/06/17 at 02:00 Miscellaneous Information 1 ea NOTE XX ; Start 05/05/17 at 09:00 Glucose (Glutose) 15 gm Q15M PRN PO DECREASED GLUCOSE; Start 05/05/17 at 09:00 Glucose (Glutose) 22.5 gm Q15M PRN PO DECREASED GLUCOSE; Start 05/05/17 at 09: 00 Dextrose (D50w Syringe) 25 ml Q15M PRN IV DECREASED GLUCOSE; Start 05/05/17 at 09:00 Dextrose (D50w Syringe) 50 ml Q15M PRN IV DECREASED GLUCOSE; Start 05/05/17 at 09:00 Glucagon (Glucagen) 1 mg Q15M PRN IM DECREASED GLUCOSE; Start 05/05/17 at 09:00 Glucose (Glutose) 15 gm Q15M PRN BUCCAL DECREASED GLUCOSE; Start 05/05/17 at 09 :00 Insulin Glargine 13 unit 13 unit DAILY@08 SC Last administered on 05/06/17 09: 28; Admin Dose 13 UNIT; Start 05/05/17 at 09:30 Sodium Chloride (1/2 NS) 1,000 ml @ 80 mls/hr [id number] IV Last administered on 05/06/17 01:17; Admin Dose 80 MLS/HR; Start 05/05/17 at 10:30 Cyclobenzaprine HCl (Flexeril) 5 mg Q8H PRN PO neck pain; Start 05/05/17 at 13: 00 Atorvastatin Calcium (Lipitor) 20 mg DAILY@21 PO Last administered on 20:35; Admin Dose 20 MG; Start 05/05/17 at 21:00 Pantoprazole (Protonix Tab) 40 mg DAILY@06 PO Last administered on 05/06/17 06 :12; Admin Dose 40 MG; Start 05/06/17 at 06:00 Procedures Procedures PROCEDURE: US carotid arteries. CLINICAL INDICATION: Dizziness. TECHNIQUE: Multiple sonographic images of the carotid arteries and vertebral arteries were obtained utilizing fraser scale, duplex, and color-flow imaging. The images were reviewed on a PACS workstation. COMPARISON: No prior studies are available for comparison. FINDINGS: Evaluation of the right carotid bifurcation region reveals mild atherosclerotic disease. Evaluation of the left carotid bifurcation region reveals mild atherosclerotic disease. There is antegrade flow within the vertebral arteries bilaterally. RIGHT CAROTID MEASUREMENTS: Common Carotid Artery 83 (cm/sec) Internal Carotid Artery 91 (cm/sec) External Carotid Artery 64 (cm/sec) Vertebral Artery 64 (cm/sec) Internal Carotid/Common Carotid 1.1 LEFT CAROTID MEASUREMENTS: Common Carotid Artery 80 (cm/sec) Internal Carotid Artery 73 (cm/sec) External Carotid Artery 83 (cm/sec) Vertebral Artery 57 (cm/sec) Internal Carotid/Common Carotid 0.9 Validated velocity measurements with angiographic measurements. Velocity criteria are extrapolated from diameter data as defined by the Society of Radiologists in Ultrasound Consensus Conference. Radiology 2003; 229;340-346. This study does indirectly reference the measurement of the distal ICA diameter as the denominator for stenosis measurement. IMPRESSION: 1. Less than 50% stenosis bilaterally in the internal carotid arteries. 2. Normal antegrade flow in the vertebral arteries bilaterally. RPTAT: QQ SRU Consensus Conference Criteria for the Diagnosis of Carotid Artery Stenosis* Degree of Stenosis, % ICA PSV, cm/sec Plaque Estimate, % ICA/CCA PSV Ratio Normal <125 None <2.0 <50 <125 <50 <2.0 50 69 125-230 >50 2.0-4.0 >70 but less than near occlusion >230 >50 <4.0 Near occlusion High, low, or undetectable Visible Variable Total occlusion Undetectable Visible, no detectable lumen Not applicable *Cartoid artery stenosis: fraser-scale and Doppler US diagnosis. Society of Radiologists in Ultrasound Consensus Conference. Radiology 2003; 229: 340-346 .Eduin Mathis MD, MD Date Time Electronically viewed and signed by .Eduin Mathis MD, MD on 05/05/2017 13:41 .R/ CC: ANDRIY LEA BOLATITO M. May 06, 2017 11:27
[2017-05-06] MEDS: AMOXICILLIN/CLAV 875 MG TAB PO SCH ×2 (13:44→20:23)
--- NOTE | 2017-05-06 18:28 | PDOCDIS ---
Discharge Instructions CONDITION Patient Condition: Stable HOME CARE INSTRUCTIONS: Special Diet: carbohydrate controlled diet ACTIVITY: Activity Restrictions: Slowly Increase Activity Rest between Activity Activity Restrictions Comment: Fall precautions FOLLOW UP/APPOINTMENTS Follow-up Plan Please follow-up with your primary care doctor within 1-2 weeks, you need to repeat renal function test to ensure your creatinine remains normal. I have made changes to your medications, please review these with the nurse before leaving. Ask your nurse or pharmacist if you have any questions. ANDRIY LEA. May 06, 2017 18:28
--- NOTE | 2017-05-06 18:43 | RADRPT ---
PROCEDURE: MRI Brain without contrast. CLINICAL INDICATION: Dizziness and visual changes. TECHNIQUE: An MRI of the brain was performed utilizing the following sequences: Sagittal and axial T1 weighted, axial T2 weighted, axial diffusion weighted with ADC mapping, coronal GRE, and axial F LAIR. COMPARISON: None. FINDINGS: No diffusion weighted abnormalities are seen to suggest the presence of acute ischemia or recent inf arct. No hypointense signal abnormalities are seen on the GRE images to suggest the presence of blo od degradation products. There is no evidence of intracranial hemorrhage, mass effect, or midline s hift. No extra-axial fluid collections are seen. The ventricles and sulci are mildly enlarged indica tive of volume loss. There is 7 mm T2 and FLAIR hyperintensity in the right precentral gyrus. There are additional few small scattered foci of T2 FLAIR hyperintensity in the white matter, which are nonspecific in etiology but likely reflect chronic small vessel ischemic changes. No abnormal intracranial vascular flow void is noted. The visualized paranasal sinuses are grossly clear. IMPRESSION: 1. No acute intracranial hemorrhage or infarction. 2. 7 mm T2 and FLAIR hyperintensity in the right precentral gyrus. Recommend follow-up brain MRI w ith contrast to evaluate for possible underlying lesion. 3. Minimal chronic small vessel ischemic changes. 4. Mild generalized cerebral volume loss. RPTAT: HFN .Jeanmarie Hanson MD, MD Date Time Electronically viewed and signed by .Jeanmarie Hanson MD, MD on 05/06/2017 18:43 .N/
[2017-05-06] MEDS: ATORVASTATIN 20 MG TAB PO SCH (20:23)
[2017-05-07] VITALS (12 sets, daily range): BP systolic 117–165; BP diastolic 67–79; PULSE 65–100; RESP 16–20
[2017-05-07] MEDS: SOD CHLORIDE 0.45% 1,000 ML IV SCH (00:43)
[2017-05-07] MEDS: PANTOPRAZOLE (EC) 40 MG TAB PO SCH (05:40)
[2017-05-07] MEDS: INSULIN ASPART [NOVOLOG] 3 ML PEN SC SCH ×4 (07:55→20:11)
[2017-05-07] MEDS: ASPIRIN (EC) 81 MG TAB PO SCH (08:16)
[2017-05-07] MEDS: AMOXICILLIN/CLAV 875 MG TAB PO SCH ×2 (08:16→20:11)
[2017-05-07] MEDS: INSULIN GLARGINE [LANtus] 3 ML PEN SC SCH (08:29)
--- NOTE | 2017-05-07 11:16 | CONS ---
Date/Time of Note Date/Time of Note DATE: 05/07/17 TIME: 11:15 Consult Date/Type/Reason Admit Date/Time May 04, 2017 at 22:02 Initial Consult Date 05/05/17 Subjective 62 y/o male from outside facility admitted for weakness and lower back pain. Pt. has h/o ckd, recent us showed echogenic kidneys???baseline, on admit has arf and hyperkalemia. Pt. given kayexalate and taken off acei now feels better, creat cont to improve. Initial urine was bland and non reveling. creat stabilized. case d/w dr. sherman. mri ordered Exam Constitutional: alert, oriented, well developed Psych: nl mood/affect, no complaints, No anxiety, No confusion, No depression, No other, No suicidal Head: atraumatic, normocephalic Eyes: EOMI, PERRL, nl conjunctiva, nl lids, nl sclera ENMT: nl external ears & nose, nl lips & teeth, nl nasal mucosa & septum Neck: non-tender, supple Respiratory: clear to auscultation, normal air movement Cardiovascular: nl pulses, regular rate and rhythm Gastrointestinal: nl liver, spleen, non-tender, soft Musculoskeletal: joint tenderness, nl extremities to inspection, nl gait and stance Extremities: normal pulses 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, nl mental status, nl speech, nl strength Objective Vital Signs Date Time Temp Pulse Resp B/P Pulse Ox O2 Delivery O2 Flow Rate FiO2 05/07/17 08:45 65 05/07/17 07:53 98.0 18 159/79 98 Intake and Output 05/06/17 05/06/17 05/07/17 15:00 23:00 07:00 Intake Total 700 ml 1550 ml Output Total 1350 ml Balance 700 ml 200 ml Results/Medications Result Diagram: 05/06/17 0612 05/06/17 0614 Results 24 hrs Laboratory Tests Test 05/06/17 12:51 05/06/17 18:13 05/06/17 20:20 05/07/17 08:16 Bedside Glucose 99 167 114 111 Medications Current Medications Ondansetron HCl (Zofran Inj) 4 mg Q6H PRN IV NAUSEA AND/OR VOMITING; Start at 00:00 Acetaminophen (Tylenol Tab) 650 mg Q6H PRN PO PAIN LEVEL 1-3 OR FEVER; Start at 00:00 Aspirin (Halfprin) 81 mg DAILY PO Last administered on 05/07/17 08:16; Admin Dose 81 MG; Start 05/05/17 at 09:00 Diagnostic Test (Pha) (Accu-Chek) 1 ea 02 XX ; Start 05/06/17 at 02:00 Diagnostic Test (Pha) (Accu-Chek) 1 ea 02 XX ; Start 05/06/17 at 02:00 Miscellaneous Information 1 ea NOTE XX ; Start 05/05/17 at 09:00 Glucose (Glutose) 15 gm Q15M PRN PO DECREASED GLUCOSE; Start 05/05/17 at 09:00 Glucose (Glutose) 22.5 gm Q15M PRN PO DECREASED GLUCOSE; Start 05/05/17 at 09: 00 Dextrose (D50w Syringe) 25 ml Q15M PRN IV DECREASED GLUCOSE; Start 05/05/17 at 09:00 Dextrose (D50w Syringe) 50 ml Q15M PRN IV DECREASED GLUCOSE; Start 05/05/17 at 09:00 Glucagon (Glucagen) 1 mg Q15M PRN IM DECREASED GLUCOSE; Start 05/05/17 at 09:00 Glucose (Glutose) 15 gm Q15M PRN BUCCAL DECREASED GLUCOSE; Start 05/05/17 at 09 :00 Insulin Glargine 13 unit 13 unit DAILY@08 SC Last administered on 05/07/17 08: 29; Admin Dose 13 UNIT; Start 05/05/17 at 09:30 Sodium Chloride (1/2 NS) 1,000 ml @ 80 mls/hr [id number] IV Last administered on 05/07/17 00:43; Admin Dose 80 MLS/HR; Start 05/05/17 at 10:30 Cyclobenzaprine HCl (Flexeril) 5 mg Q8H PRN PO neck pain; Start 05/05/17 at 13: 00 Atorvastatin Calcium (Lipitor) 20 mg DAILY@21 PO Last administered on 20:23; Admin Dose 20 MG; Start 05/05/17 at 21:00 Pantoprazole (Protonix Tab) 40 mg DAILY@06 PO Last administered on 05/07/17 05 :40; Admin Dose 40 MG; Start 05/06/17 at 06:00 Amoxicillin/ Clavulanate Potassium (Augmentin) 875 mg BID PO Last administered on 05/07/17t 08:16; Admin Dose 875 MG; Start 05/06/17 at 13:00; Stop 05/16/17 at 12:59 Assessment/Plan Chief Complaint/Hosp Course 1. CKD + ARF-improved rapidly with volume and with holding acei. Watch uop, i/o , avoid nephrotoxins, watch uop. -likely cause hemodynamic, ua bland. -watch for diuretic phase of fredo with electrolyte wasting. 2. htn- cont meds, no acei for now 3. hyperkalemia- csp ivf, s/p kayexalate Problems: HERNAN MAURICIO MD May 07, 2017 11:16
--- NOTE | 2017-05-07 11:57 | PN ---
Date/Time of Note Date/Time of Note DATE: 05/07/17 TIME: 11:52 Assessment/Plan VTE Prophylaxis VTE Prophylaxis Intervention: ambulation, SCD's Lines/Catheters IV Catheter Type (from Nrs): Peripheral IV Urinary Cath still in place: No Assessment/Plan Assessment/Plan This is a 62-year-old male being admitted to the telemetry floor for: #1 Dizziness: likely 2/2 #2: now resolved #2 BOYD with Hyperkalemia : resolved #3 Neck pain likely 2/2 Msc spasm #4 Diabetes mellitus type 2: fair control #5 Hypertension: mostly controlled PLAN: * f/u final MRI report / d/c home if normal * Continue SSI and Lantus / start low dose BB now and plan to resume ADRIANO in a few days possibly outpatient after contrast wears off. * Supportive care * DVT and GI prophylaxis: SCDs, Protonix * Further treatment strategy as per the clinical course Subjective 24 Hr Interval Summary Free Text/Dictation Patient seen and examined. no new issues, unable to be d/c yesterday 2/2 non specific MRI findings, planned for contrast MRI today, okayed by Nephrology. Exam/Review of Systems Vital Signs Vitals Vital Signs Date Time Temp Pulse Resp B/P Pulse Ox O2 Delivery O2 Flow Rate FiO2 05/07/17 08:45 65 05/07/17 07:53 98.0 18 159/79 98 Intake and Output 05/06/17 05/06/17 05/07/17 15:00 23:00 07:00 Intake Total 700 ml 1550 ml Output Total 1350 ml Balance 700 ml 200 ml Exam Constitutional: alert, oriented Head: atraumatic, normocephalic Neck: non-tender today , supple Respiratory: clear to auscultation Cardiovascular: regular rate and rhythm Gastrointestinal: S/ NT / ND / +BS Extremities: no edema, good radial pulses Results Result Diagram: 05/06/17 0612 05/06/17 0614 Results 24 hrs Laboratory Tests Test 05/06/17 12:51 05/06/17 18:13 05/06/17 20:20 05/07/17 08:16 Bedside Glucose 99 167 114 111 Medications Medications Current Medications Ondansetron HCl (Zofran Inj) 4 mg Q6H PRN IV NAUSEA AND/OR VOMITING; Start at 00:00 Acetaminophen (Tylenol Tab) 650 mg Q6H PRN PO PAIN LEVEL 1-3 OR FEVER; Start at 00:00 Aspirin (Halfprin) 81 mg DAILY PO Last administered on 05/07/17 08:16; Admin Dose 81 MG; Start 05/05/17 at 09:00 Diagnostic Test (Pha) (Accu-Chek) 1 ea 02 XX ; Start 05/06/17 at 02:00 Diagnostic Test (Pha) (Accu-Chek) 1 ea 02 XX ; Start 05/06/17 at 02:00 Miscellaneous Information 1 ea NOTE XX ; Start 05/05/17 at 09:00 Glucose (Glutose) 15 gm Q15M PRN PO DECREASED GLUCOSE; Start 05/05/17 at 09:00 Glucose (Glutose) 22.5 gm Q15M PRN PO DECREASED GLUCOSE; Start 05/05/17 at 09: 00 Dextrose (D50w Syringe) 25 ml Q15M PRN IV DECREASED GLUCOSE; Start 05/05/17 at 09:00 Dextrose (D50w Syringe) 50 ml Q15M PRN IV DECREASED GLUCOSE; Start 05/05/17 at 09:00 Glucagon (Glucagen) 1 mg Q15M PRN IM DECREASED GLUCOSE; Start 05/05/17 at 09:00 Glucose (Glutose) 15 gm Q15M PRN BUCCAL DECREASED GLUCOSE; Start 05/05/17 at 09 :00 Insulin Glargine 13 unit 13 unit DAILY@08 SC Last administered on 05/07/17 08: 29; Admin Dose 13 UNIT; Start 05/05/17 at 09:30 Sodium Chloride (1/2 NS) 1,000 ml @ 80 mls/hr [id number] IV Last administered on 05/07/17 00:43; Admin Dose 80 MLS/HR; Start 05/05/17 at 10:30 Cyclobenzaprine HCl (Flexeril) 5 mg Q8H PRN PO neck pain; Start 05/05/17 at 13: 00 Atorvastatin Calcium (Lipitor) 20 mg DAILY@21 PO Last administered on 20:23; Admin Dose 20 MG; Start 05/05/17 at 21:00 Pantoprazole (Protonix Tab) 40 mg DAILY@06 PO Last administered on 05/07/17 05 :40; Admin Dose 40 MG; Start 05/06/17 at 06:00 Amoxicillin/ Clavulanate Potassium (Augmentin) 875 mg BID PO Last administered on 05/07/17t 08:16; Admin Dose 875 MG; Start 05/06/17 at 13:00; Stop 05/16/17 at 12:59 ANDRIY LEA May 07, 2017 11:57
[2017-05-07] MEDS ORDERED: LISINOPRIL 20 MG TAB PO SCH (12:00)
[2017-05-07] MEDS: METOPROLOL 25 MG TAB PO SCH ×2 (13:03→20:11)
--- NOTE | 2017-05-07 14:17 | RADRPT ---
PROCEDURE: MRI Brain with contrast. CLINICAL INDICATION: Dizziness, visual changes. TECHNIQUE: An MRI of the brain was performed utilizing the following sequences following the uneve ntful administration of 10 cc Magnevist, precontrast axial T1-weighted images and postcontrast axial and coronal T1-weighted images, axial, sagittal and coronal FSPGR images were obtained. Images were viewed on a PACS workstation. COMPARISON: Brain MRI 05/06/2015. FINDINGS: There is 6 x 4 mm enhancing lesion in the right precentral gyrus associated with previously noted 7 mm T2 and FLAIR hyperintensity on prior MRI. No other abnormal intraparenchymal, meningeal or ependymal enhancement is seen. IMPRESSION: 1. A 6 x 4 mm enhancing lesion in the right precentral gyrus associated with previously noted 7 mm abnormal signal intensity on prior MRI which is concerning for intracranial metastasis. RPTAT: HFN .Jeanmarie Hanson MD, MD Date Time Electronically viewed and signed by .Jeanmarie Hanson MD, MD on 05/07/2017 14:17 .N/
[2017-05-07] MEDS: ATORVASTATIN 20 MG TAB PO SCH (20:11)
[2017-05-08] VITALS (13 sets, daily range): BP systolic 114–136; BP diastolic 62–72; PULSE 65–167; RESP 15–22
[2017-05-08] MEDS: ACCU-CHEK XX SCH ×4 (02:00→21:06)
[2017-05-08] MEDS: SOD CHLORIDE 0.45% 1,000 ML IV SCH ×2 (02:32→14:00)
[2017-05-08] MEDS: PANTOPRAZOLE (EC) 40 MG TAB PO SCH (05:30)
[2017-05-08 05:58] LABS: ADD SCAN DIFF NO
[2017-05-08 06:00] LABS: BASOPHIL # 0.1 10^3/ul (0.0-0.1); BASOPHILS % 0.7 % (0.0-2.0); EOSINOPHILS # 0.3 10^3/ul (0.0-0.5); EOSINOPHILS % 4.2 % (0.0-7.0); HEMATOCRIT 36.3 % (42.0-52.0); HEMOGLOBIN 12.1 g/dl (14.0-18.0); LYMPHOCYTES # 1.8 10^3/ul (0.8-2.9); LYMPHOCYTES % 23.6 % (15.0-51.0); MEAN CORPUSCULAR HEMOGLOBIN 32.9 pg (29.0-33.0); MEAN CORPUSCULAR HGB CONC 33.3 g/dl (32.0-37.0); MEAN CORPUSCULAR VOLUME 98.6 fl (82.0-101.0); MONOCYTE # 0.9 10^3/ul (0.3-0.9); MONOCYTES % 11.1 % (0.0-11.0); NEUTROPHIL # 4.6 10^3/ul (1.6-7.5); PLATELET COUNT 193 10^3/UL (140-415); RED BLOOD COUNT 3.68 10^6/ul (4.70-6.10); RED CELL DISTRIBUTION WIDTH 11.8 % (11.5-14.5); WHITE BLOOD COUNT 7.6 10^3/ul (4.8-10.8)
[2017-05-08 06:50] LABS: CALCIUM 9.7 mg/dl (8.4-10.2); CREATININE 0.88 mg/dl (0.61-1.24); MAGNESIUM 1.8 mg/dl (1.7-2.5); POTASSIUM 4.6 mmol/L (3.5-5.1)
[2017-05-08] MEDS: INSULIN ASPART [NOVOLOG] 3 ML PEN SC SCH ×4 (07:55→21:00)
[2017-05-08] MEDS: AMOXICILLIN/CLAV 875 MG TAB PO SCH ×2 (08:35→20:34)
[2017-05-08] MEDS: METOPROLOL 25 MG TAB PO SCH ×2 (08:36→20:34)
[2017-05-08] MEDS: ASPIRIN (EC) 81 MG TAB PO SCH (08:36)
[2017-05-08] MEDS: INSULIN GLARGINE [LANtus] 3 ML PEN SC SCH (08:54)
--- NOTE | 2017-05-08 09:37 | PN ---
Date/Time of Note Date/Time of Note DATE: 05/08/17 TIME: 09:33 Assessment/Plan Lines/Catheters IV Catheter Type (from [facility]): Peripheral IV Urinary Cath still in place: No Assessment/Plan Chief Complaint/Hosp Course Nonoliguric acute kidney with unknown baseline creatinine -Etiology unclear possible hemodynamics, possible ADRIANO inhibitor Renal function is recovered with supportive care continue current treatment plan renal dose all meds were nephrotoxins- -titrate off fluids Defer ADRIANO inhibitor at this time Hypertension -Blood pressure improved. Continue to hold ADRIANO inhibitor Diabetes Continue current insulin regimen Intracranial lesion -Possible metastatic disease defer to primary team - Problems: Subjective 24 Hr Interval Summary Free Text/Dictation Patient seen and examined no acute events overnight Exam/Review of Systems Vital Signs Vitals Vital Signs Date Time Temp Pulse Resp B/P Pulse Ox O2 Delivery O2 Flow Rate FiO2 05/08/17 08:12 75 05/08/17 06:56 97.7 18 121/62 96 Intake and Output 05/07/17 05/07/17 05/08/17 15:00 23:00 07:00 Intake Total 1500 ml 700 ml Balance 1500 ml 700 ml Exam HEENT: Head is normocephalic. NECK: Supple. HEART: Regular rate LUNGS: Show diminished breath sounds at base. ABDOMEN: Soft, nontender to palpation without rebound or guarding. EXTREMITIES: Negative for clubbing, cyanosis. DERMATOLOGIC: No rashes. MUSCULOSKELETAL: No joint effusions, NEUROLOGIC: No change in exam. Results Result Diagram: 05/08/17 0522 05/08/17 0522 Results 24 hrs Laboratory Tests Test 05/07/17 12:20 05/07/17 17:46 05/07/17 20:10 05/08/17 05:22 Bedside Glucose 128 123 101 White Blood Count 7.6 Red Blood Count 3.68 L Hemoglobin 12.1 L Hematocrit 36.3 L Mean Corpuscular Volume 98.6 Mean Corpuscular Hemoglobin 32.9 Mean Corpuscular Hemoglobin Concent 33.3 Red Cell Distribution Width 11.8 Platelet Count 193 Mean Platelet Volume 11.0 H Neutrophils % 60.0 Lymphocytes % 23.6 Monocytes % 11.1 H Eosinophils % 4.2 Basophils % 0.7 Nucleated Red Blood Cells % 0.0 Neutrophils # 4.6 Lymphocytes # 1.8 Monocytes # 0.9 Eosinophils # 0.3 Basophils # 0.1 Nucleated Red Blood Cells # 0.0 Sodium Level 141 Potassium Level 4.6 Chloride Level 101 Carbon Dioxide Level 26 Anion Gap 19 H Blood Urea Nitrogen 28 #H Creatinine 0.88 Glucose Level 101 Calcium Level 9.7 Magnesium Level 1.8 Test 05/08/17 08:32 Bedside Glucose 107 Medications Medications Current Medications Ondansetron HCl (Zofran Inj) 4 mg Q6H PRN IV NAUSEA AND/OR VOMITING; Start at 00:00 Acetaminophen (Tylenol Tab) 650 mg Q6H PRN PO PAIN LEVEL 1-3 OR FEVER; Start at 00:00 Aspirin (Halfprin) 81 mg DAILY PO Last administered on 05/08/17 08:36; Admin Dose 81 MG; Start 05/05/17 at 09:00 Diagnostic Test (Pha) (Accu-Chek) 1 ea 02 XX ; Start 05/06/17 at 02:00 Diagnostic Test (Pha) (Accu-Chek) 1 ea 02 XX ; Start 05/06/17 at 02:00 Miscellaneous Information 1 ea NOTE XX ; Start 05/05/17 at 09:00 Glucose (Glutose) 15 gm Q15M PRN PO DECREASED GLUCOSE; Start 05/05/17 at 09:00 Glucose (Glutose) 22.5 gm Q15M PRN PO DECREASED GLUCOSE; Start 05/05/17 at 09: 00 Dextrose (D50w Syringe) 25 ml Q15M PRN IV DECREASED GLUCOSE; Start 05/05/17 at 09:00 Dextrose (D50w Syringe) 50 ml Q15M PRN IV DECREASED GLUCOSE; Start 05/05/17 at 09:00 Glucagon (Glucagen) 1 mg Q15M PRN IM DECREASED GLUCOSE; Start 05/05/17 at 09:00 Glucose (Glutose) 15 gm Q15M PRN BUCCAL DECREASED GLUCOSE; Start 05/05/17 at 09 :00 Insulin Glargine 13 unit 13 unit DAILY@08 SC Last administered on 05/08/17 08: 54; Admin Dose 13 UNIT; Start 05/05/17 at 09:30 Sodium Chloride (1/2 NS) 1,000 ml @ 80 mls/hr [id number] IV Last administered on 05/08/17 02:32; Admin Dose 80 MLS/HR; Start 05/05/17 at 10:30 Cyclobenzaprine HCl (Flexeril) 5 mg Q8H PRN PO neck pain; Start 05/05/17 at 13: 00 Atorvastatin Calcium (Lipitor) 20 mg DAILY@21 PO Last administered on 20:11; Admin Dose 20 MG; Start 05/05/17 at 21:00 Pantoprazole (Protonix Tab) 40 mg DAILY@06 PO Last administered on 05/08/17 05 :30; Admin Dose 40 MG; Start 05/06/17 at 06:00 Amoxicillin/ Clavulanate Potassium (Augmentin) 875 mg BID PO Last administered on 05/08/17 08:35; Admin Dose 875 MG; Start 05/06/17 at 13:00; Stop 05/16/17 at 12:59 Metoprolol Tartrate (Lopressor) 25 mg BID PO Last administered on 05/08/17 08: 36; Admin Dose 25 MG; Start 05/07/17 at 12:00 VICTORIA FRAGOSO DO May 08, 2017 09:37
[2017-05-08] MEDS ORDERED: BARIUM SULF 2% 450 ML BTL (BERRY SMOOTHIE) PO ONE (10:30)
[2017-05-08 13:48] LABS: CARCINOEMBRYONIC ANTIGEN 1.5 ng/ml (0.0-5.0)
[2017-05-08 13:52] LABS: CANCER ANTIGEN 19-9 10.5 U/ml (0.0-37.0)
--- NOTE | 2017-05-08 15:02 | PN ---
Date/Time of Note Date/Time of Note DATE: 05/08/17 TIME: 14:50 Assessment/Plan VTE Prophylaxis VTE Prophylaxis Intervention: SCD's Lines/Catheters IV Catheter Type (from [facility], [place]): Peripheral IV Urinary Cath still in place: No Assessment/Plan Chief Complaint/Hosp Course #1 Dizziness secondary to brain mass MRI shows a 6 x 4 mm enhancing lesion in the right precentral gyrus, have consulted neurosurgery and oncology #2 BOYD with Hyperkalemia : resolved #3 Neck pain likely possibly related to muscle spasm #4 Diabetes mellitus type 2: fair control Continue sliding-scale Lantus #5 Hypertension-stable Continue home meds Prophylaxis: SCDs Problems: Subjective 24 Hr Interval Summary Constitutional: no complaints Exam/Review of Systems Vital Signs Vitals Vital Signs Date Time Temp Pulse Resp B/P Pulse Ox O2 Delivery O2 Flow Rate FiO2 05/08/17 12:15 74 05/08/17 11:04 98.3 17 133/64 98 Intake and Output 05/07/17 05/07/17 05/08/17 15:00 23:00 07:00 Intake Total 1500 ml 700 ml Balance 1500 ml 700 ml Exam Constitutional: alert Respiratory: clear to auscultation Cardiovascular: regular rate and rhythm Gastrointestinal: soft, No distended Musculoskeletal: nl extremities to inspection Results Result Diagram: 05/08/17 0522 05/08/17 0522 Results 24 hrs Laboratory Tests Test 05/07/17 17:46 05/07/17 20:10 05/08/17 05:22 05/08/17 08:32 Bedside Glucose 123 101 107 White Blood Count 7.6 Red Blood Count 3.68 L Hemoglobin 12.1 L Hematocrit 36.3 L Mean Corpuscular Volume 98.6 Mean Corpuscular Hemoglobin 32.9 Mean Corpuscular Hemoglobin Concent 33.3 Red Cell Distribution Width 11.8 Platelet Count 193 Mean Platelet Volume 11.0 H Neutrophils % 60.0 Lymphocytes % 23.6 Monocytes % 11.1 H Eosinophils % 4.2 Basophils % 0.7 Nucleated Red Blood Cells % 0.0 Neutrophils # 4.6 Lymphocytes # 1.8 Monocytes # 0.9 Eosinophils # 0.3 Basophils # 0.1 Nucleated Red Blood Cells # 0.0 Sodium Level 141 Potassium Level 4.6 Chloride Level 101 Carbon Dioxide Level 26 Anion Gap 19 H Blood Urea Nitrogen 28 #H Creatinine 0.88 Glucose Level 101 Calcium Level 9.7 Magnesium Level 1.8 Alpha Fetoprotein 2.07 Carcinoembryonic Antigen 1.5 CA 19-9 Antigen 10.5 Test 05/08/17 12:58 Bedside Glucose 106 Medications Medications Current Medications Ondansetron HCl (Zofran Inj) 4 mg Q6H PRN IV NAUSEA AND/OR VOMITING; Start at 00:00 Acetaminophen (Tylenol Tab) 650 mg Q6H PRN PO PAIN LEVEL 1-3 OR FEVER; Start at 00:00 Aspirin (Halfprin) 81 mg DAILY PO Last administered on 05/08/17 08:36; Admin Dose 81 MG; Start 05/05/17 at 09:00 Diagnostic Test (Pha) (Accu-Chek) 1 ea 02 XX ; Start 05/06/17 at 02:00 Diagnostic Test (Pha) (Accu-Chek) 1 ea 02 XX ; Start 05/06/17 at 02:00 Miscellaneous Information 1 ea NOTE XX ; Start 05/05/17 at 09:00 Glucose (Glutose) 15 gm Q15M PRN PO DECREASED GLUCOSE; Start 05/05/17 at 09:00 Glucose (Glutose) 22.5 gm Q15M PRN PO DECREASED GLUCOSE; Start 05/05/17 at 09: 00 Dextrose (D50w Syringe) 25 ml Q15M PRN IV DECREASED GLUCOSE; Start 05/05/17 at 09:00 Dextrose (D50w Syringe) 50 ml Q15M PRN IV DECREASED GLUCOSE; Start 05/05/17 at 09:00 Glucagon (Glucagen) 1 mg Q15M PRN IM DECREASED GLUCOSE; Start 05/05/17 at 09:00 Glucose (Glutose) 15 gm Q15M PRN BUCCAL DECREASED GLUCOSE; Start 05/05/17 at 09 :00 Insulin Glargine 13 unit 13 unit DAILY@08 SC Last administered on 05/08/17 08: 54; Admin Dose 13 UNIT; Start 05/05/17 at 09:30 Sodium Chloride (1/2 NS) 1,000 ml @ 50 mls/hr Q20H IV Last administered on 14:00; Admin Dose 50 MLS/HR; Start 05/05/17 at 10:30 Cyclobenzaprine HCl (Flexeril) 5 mg Q8H PRN PO neck pain; Start 05/05/17 at 13: 00 Atorvastatin Calcium (Lipitor) 20 mg DAILY@21 PO Last administered on 20:11; Admin Dose 20 MG; Start 05/05/17 at 21:00 Pantoprazole (Protonix Tab) 40 mg DAILY@06 PO Last administered on 05/08/17 05 :30; Admin Dose 40 MG; Start 05/06/17 at 06:00 Amoxicillin/ Clavulanate Potassium (Augmentin) 875 mg BID PO Last administered on 05/08/17 08:35; Admin Dose 875 MG; Start 05/06/17 at 13:00; Stop 05/16/17 at 12:59 Metoprolol Tartrate (Lopressor) 25 mg BID PO Last administered on 05/08/17 08: 36; Admin Dose 25 MG; Start 05/07/17 at 12:00 MICHAEL ALANIS May 08, 2017 15:02
[2017-05-08] MEDS: ATORVASTATIN 20 MG TAB PO SCH (20:34)
[2017-05-08] MEDS ORDERED: SOD CHLORIDE 0.9% 100 ML ONE (20:57)
[2017-05-08] MEDS ORDERED: IOHEXOL 300MG/ML 150 ML BTL ONE (20:57)
[2017-05-09] VITALS (8 sets, daily range): BP systolic 118–142; BP diastolic 61–70; PULSE 64–87; RESP 17–18
[2017-05-09] MEDS: PANTOPRAZOLE (EC) 40 MG TAB PO SCH (05:35)
[2017-05-09] MEDS: INSULIN ASPART [NOVOLOG] 3 ML PEN SC SCH ×3 (07:51→17:55)
[2017-05-09] MEDS: INSULIN GLARGINE [LANtus] 3 ML PEN SC SCH (07:56)
[2017-05-09 08:30] LABS: ADD SCAN DIFF NO
[2017-05-09 08:34] LABS: BASOPHILS % 0.4 % (0.0-2.0); EOSINOPHILS # 0.2 10^3/ul (0.0-0.5); EOSINOPHILS % 2.6 % (0.0-7.0); HEMOGLOBIN 12.2 g/dl (14.0-18.0); LYMPHOCYTES # 1.5 10^3/ul (0.8-2.9); LYMPHOCYTES % 21.1 % (15.0-51.0); MEAN CORPUSCULAR HGB CONC 34.9 g/dl (32.0-37.0); MEAN CORPUSCULAR VOLUME 97.5 fl (82.0-101.0); MEAN PLATELET VOLUME 10.9 fl (7.4-10.4); MONOCYTE # 0.7 10^3/ul (0.3-0.9); MONOCYTES % 9.3 % (0.0-11.0); NEUTROPHIL # 4.8 10^3/ul (1.6-7.5); NEUTROPHILS % 66.2 % (39.0-77.0); PLATELET COUNT 201 10^3/UL (140-415); RED BLOOD COUNT 3.59 10^6/ul (4.70-6.10); RED CELL DISTRIBUTION WIDTH 11.5 % (11.5-14.5); WHITE BLOOD COUNT 7.2 10^3/ul (4.8-10.8)
[2017-05-09] MEDS: ASPIRIN (EC) 81 MG TAB PO SCH (08:39)
[2017-05-09] MEDS: AMOXICILLIN/CLAV 875 MG TAB PO SCH (08:39)
[2017-05-09] MEDS: METOPROLOL 25 MG TAB PO SCH (08:40)
[2017-05-09] MEDS: SOD CHLORIDE 0.45% 1,000 ML IV SCH ×2 (08:40→15:50)
--- NOTE | 2017-05-09 08:43 | PN ---
Date/Time of Note Date/Time of Note DATE: 05/09/17 TIME: 08:41 Assessment/Plan Lines/Catheters IV Catheter Type (from Nrs): [facility] Urinary Cath still in place: No Assessment/Plan Chief Complaint/Hosp Course Nonoliguric acute kidney with unknown baseline creatinine -Etiology unclear possible hemodynamics, possible ADRIANO inhibitor Renal function is recovered with supportive care continue current treatment plan renal dose all meds were nephrotoxins- Defer ADRIANO inhibitor at this time Hypertension -Blood pressure improved. Continue to hold ADRIANO inhibitor Diabetes Continue current insulin regimen Intracranial lesion -Possible metastatic disease defer to primary team - Problems: Subjective 24 Hr Interval Summary Free Text/Dictation Patient seen and examined No events overnight Exam/Review of Systems Vital Signs Vitals Vital Signs Date Time Temp Pulse Resp B/P Pulse Ox O2 Delivery O2 Flow Rate FiO2 05/09/17 08:35 70 05/09/17 06:55 98.0 18 118/64 97 Intake and Output 05/08/17 05/08/17 05/09/17 15:00 23:00 07:00 Intake Total 950 ml 1180 ml Output Total 450 ml 240 ml Balance -450 ml 710 ml 1180 ml Exam HEENT: Head is normocephalic. NECK: Supple. HEART: Regular rate LUNGS: Show diminished breath sounds at base. ABDOMEN: Soft, nontender to palpation without rebound or guarding. EXTREMITIES: Negative for clubbing, cyanosis. DERMATOLOGIC: No rashes. MUSCULOSKELETAL: No joint effusions, NEUROLOGIC: No change in exam. Results Result Diagram: 05/08/17 0522 05/08/17 0522 Results 24 hrs Laboratory Tests Test 05/08/17 12:58 05/08/17 18:11 05/08/17 20:36 05/09/17 07:51 Bedside Glucose 106 130 137 103 Medications Medications Current Medications Ondansetron HCl (Zofran Inj) 4 mg Q6H PRN IV NAUSEA AND/OR VOMITING; Start at 00:00 Acetaminophen (Tylenol Tab) 650 mg Q6H PRN PO PAIN LEVEL 1-3 OR FEVER; Start at 00:00 Aspirin (Halfprin) 81 mg DAILY PO Last administered on 05/09/17t 08:39; Admin Dose 81 MG; Start 05/05/17 at 09:00 Diagnostic Test (Pha) (Accu-Chek) 1 ea 02 XX ; Start 05/06/17 at 02:00 Diagnostic Test (Pha) (Accu-Chek) 1 ea 02 XX ; Start 05/06/17 at 02:00 Miscellaneous Information 1 ea NOTE XX ; Start 05/05/17 at 09:00 Glucose (Glutose) 15 gm Q15M PRN PO DECREASED GLUCOSE; Start 05/05/17 at 09:00 Glucose (Glutose) 22.5 gm Q15M PRN PO DECREASED GLUCOSE; Start 05/05/17 at 09: 00 Dextrose (D50w Syringe) 25 ml Q15M PRN IV DECREASED GLUCOSE; Start 05/05/17 at 09:00 Dextrose (D50w Syringe) 50 ml Q15M PRN IV DECREASED GLUCOSE; Start 05/05/17 at 09:00 Glucagon (Glucagen) 1 mg Q15M PRN IM DECREASED GLUCOSE; Start 05/05/17 at 09:00 Glucose (Glutose) 15 gm Q15M PRN BUCCAL DECREASED GLUCOSE; Start 05/05/17 at 09 :00 Insulin Glargine 13 unit 13 unit DAILY@08 SC Last administered on 05/09/17 07: 56; Admin Dose 13 UNIT; Start 05/05/17 at 09:30 Sodium Chloride (1/2 NS) 1,000 ml @ 50 mls/hr Q20H IV Last administered on 08:40; Admin Dose 50 MLS/HR; Start 05/05/17 at 10:30 Cyclobenzaprine HCl (Flexeril) 5 mg Q8H PRN PO neck pain; Start 05/05/17 at 13: 00 Atorvastatin Calcium (Lipitor) 20 mg DAILY@21 PO Last administered on 20:34; Admin Dose 20 MG; Start 05/05/17 at 21:00 Pantoprazole (Protonix Tab) 40 mg DAILY@06 PO Last administered on 05/09/17 05 :35; Admin Dose 40 MG; Start 05/06/17 at 06:00 Amoxicillin/ Clavulanate Potassium (Augmentin) 875 mg BID PO Last administered on 05/09/17 08:39; Admin Dose 875 MG; Start 05/06/17 at 13:00; Stop 05/16/17 at 12:59 Metoprolol Tartrate (Lopressor) 25 mg BID PO Last administered on 05/09/17 08: 40; Admin Dose 25 MG; Start 05/07/17 at 12:00 VICTORIA FRAGOSO DO May 09, 2017 08:42
[2017-05-09 09:09] LABS: CALCIUM 9.9 mg/dl (8.4-10.2); CREATININE 0.86 mg/dl (0.61-1.24); MAGNESIUM 1.7 mg/dl (1.7-2.5); PHOSPHORUS 3.5 mg/dl (2.5-4.9); POTASSIUM 4.4 mmol/L (3.5-5.1)
--- NOTE | 2017-05-09 11:34 | RADRPT ---
AMENDMENT: 05/09/2017 3:25:04 PM Kwaku Hutchins M.D PROCEDURE: CT Chest, Abdomen and Pelvis with contrast. CLINICAL INDICATION: eval for CA TECHNIQUE: CT scan of the chest, abdomen, and pelvis with contrast was performed on a multi-detect or high-resolution CT scanner. The patient was scanned following the uncomplicated intravenous admi nistration of 40 cc of Omnipaque 300 intravenous contrast. Coronal and sagittal reformatted images were obtained from the axial source images. Images were reviewed on a high-resolution PACS workstati on. The total exam CTDI equals 11.8 mGy and the total exam DLP equals 920 mGy-cm. COMPARISON: None available FINDINGS: CT chest: The visualized thyroid gland, central airways, and esophagus are grossly unremarkable. The heart is normal in size. Three-vessel coronary calcifications are present. No pericardial effu peter. No intracardiac filling defect. Scattered atherosclerotic calcifications of the thoracic aor ta without dissection or aneurysm. The central pulmonary artery is normal-appearing. No mediastinal adenopathy by imaging size criteria. The lungs are clear without focal airspace opacity, pleural effusion, or pneumothorax. Soft tissue structures of the chest are normal. There is diffuse idiopathic skeletal hyperostosis involving the mid thoracic spine. No suspicious osseous lesions or fracture. Osteoarthritic changes at the firs t costomanubrial junction is present. CT abdomen/pelvis: The liver contains a few speckled calcifications likely reflecting sequelae of prior infection (i.e. old granulomatous disease). No suspicious liver lesions seen. No biliary dilatation. The portal vein is patent. The spleen, bilateral adrenal glands, gallbladder, and pancreas are normal-appearing. No pancreatic ductal dilatation. The bilateral kidneys are normal-appearing without suspicious renal mass nor nephrolithiasis. No hy dronephrosis. The small and large bowel are thin-walled and nondilated without evidence for obstruction. Normal a ppendix. There is colonic diverticulosis predominately involving the sigmoid colon without CT evide nce for diverticulitis. Some stool is present within the proximal colon. No bowel obstruction. Urinary bladder is grossly normal. The size of the prostate gland is normal. Prostatic malignancy cannot be excluded by CT. Abdominal aorta demonstrates scattered atherosclerotic calcifications without dissection or aneurysm . No free air, free fluid, mesenteric stranding, nor abdominal pelvic adenopathy by imaging size crite chepe. IMPRESSION: No evidence for malignancy in the chest, abdomen, or pelvis. Uncomplicated sigmoid colon diverticulosis. Three-vessel coronary calcifications. PROCEDURE: CT Chest, Abdomen and Pelvis with contrast. CLINICAL INDICATION: eval for CA TECHNIQUE: CT scan of the chest, abdomen, and pelvis with contrast was performed on a multi-detect or high-resolution CT scanner. The patient was scanned following the uncomplicated intravenous admi nistration of 40 cc of Omnipaque 300 intravenous contrast. Coronal and sagittal reformatted images were obtained from the axial source images. Images were reviewed on a high-resolution PACS workstati on. The total exam CTDI equals 11.8 mGy and the total exam DLP equals 920 mGy-cm. COMPARISON: None available FINDINGS: CT chest: The visualized thyroid gland, central airways, and esophagus are grossly unremarkable. The heart is normal in size. Three-vessel coronary calcifications are present. No pericardial effu peter. No intracardiac filling defect. Scattered atherosclerotic calcifications of the thoracic aor ta without dissection or aneurysm. The central pulmonary artery is normal-appearing. No mediastinal adenopathy by imaging size criteria. The lungs are clear without focal airspace opacity, pleural effusion, or pneumothorax. Soft tissue structures of the chest are normal. There is diffuse idiopathic skeletal hyperostosis involving the mid thoracic spine. No suspicious osseous lesions or fracture. Osteoarthritic changes at the firs t costomanubrial junction is present. CT abdomen/pelvis: The liver contains a few speckled calcifications likely reflecting sequelae of prior infection (i.e. old granulomatous disease). No suspicious liver lesions seen. No biliary dilatation. The portal vein is patent. The spleen, bilateral adrenal glands, gallbladder, and pancreas are normal-appearing. No pancreatic ductal dilatation. The bilateral kidneys are normal-appearing without suspicious renal mass nor nephrolithiasis. No hy dronephrosis. The small and large bowel are thin-walled and nondilated without evidence for obstruction. Normal a ppendix. There is colonic diverticulosis predominately involving the sigmoid colon without CT evide nce for diverticulitis. Some stool is present within the proximal colon. No bowel obstruction. Urinary bladder is grossly normal. The size of the prostate gland is normal. Prostatic malignancy cannot be excluded by CT. Abdominal aorta demonstrates scattered atherosclerotic calcifications without dissection or aneurysm . No free air, free fluid, mesenteric stranding, nor abdominal pelvic adenopathy by imaging size crite chepe. IMPRESSION: No evidence for malignancy in the chest, abdomen, or pelvis. Uncomplicated sigmoid colon diverticulosis. Three-vessel coronary calcifications. Meir Hutchins Physician Date Time Electronically viewed and signed by Meir Hutchins, Physician on 05/09/2017 15:25 ML/
--- NOTE | 2017-05-09 15:25 | RADRPT ---
PROCEDURE: CT Chest, Abdomen and Pelvis with contrast. CLINICAL INDICATION: eval for CA TECHNIQUE: CT scan of the chest, abdomen, and pelvis with contrast was performed on a multi-detect or high-resolution CT scanner. The patient was scanned following the uncomplicated intravenous admi nistration of 40 cc of Omnipaque 300 intravenous contrast. Coronal and sagittal reformatted images were obtained from the axial source images. Images were reviewed on a high-resolution PACS workstati on. The total exam CTDI equals 11.8 mGy and the total exam DLP equals 920 mGy-cm. COMPARISON: None available FINDINGS: CT chest: The visualized thyroid gland, central airways, and esophagus are grossly unremarkable. The heart is normal in size. Three-vessel coronary calcifications are present. No pericardial effu peter. No intracardiac filling defect. Scattered atherosclerotic calcifications of the thoracic aor ta without dissection or aneurysm. The central pulmonary artery is normal-appearing. No mediastinal adenopathy by imaging size criteria. The lungs are clear without focal airspace opacity, pleural effusion, or pneumothorax. Soft tissue structures of the chest are normal. There is diffuse idiopathic skeletal hyperostosis involving the mid thoracic spine. No suspicious osseous lesions or fracture. Osteoarthritic changes at the firs t costomanubrial junction is present. CT abdomen/pelvis: The liver contains a few speckled calcifications likely reflecting sequelae of prior infection (i.e. old granulomatous disease). No suspicious liver lesions seen. No biliary dilatation. The portal vein is patent. The spleen, bilateral adrenal glands, gallbladder, and pancreas are normal-appearing. No pancreatic ductal dilatation. The bilateral kidneys are normal-appearing without suspicious renal mass nor nephrolithiasis. No hy dronephrosis. The small and large bowel are thin-walled and nondilated without evidence for obstruction. Normal a ppendix. There is colonic diverticulosis predominately involving the sigmoid colon without CT evide nce for diverticulitis. Some stool is present within the proximal colon. No bowel obstruction. Urinary bladder is grossly normal. The size of the prostate gland is normal. Prostatic malignancy cannot be excluded by CT. Abdominal aorta demonstrates scattered atherosclerotic calcifications without dissection or aneurysm . No free air, free fluid, mesenteric stranding, nor abdominal pelvic adenopathy by imaging size crite chepe. IMPRESSION: No evidence for malignancy in the chest, abdomen, or pelvis. Uncomplicated sigmoid colon diverticulosis. Three-vessel coronary calcifications. Meir Hutchins, Physician Date Time Electronically viewed and signed by Meir Hutchins, Physician on 05/09/2017 15:25 ML/
[2017-05-09] MEDS ORDERED: MAGNESIUM SULFATE 2 GM/50 ML 50 ML IVPB ONE (16:00)
--- NOTE | 2017-05-09 16:34 | DS ---
Date/Time of Note Date/Time of Note DATE: 05/09/17 TIME: 16:25 Discharge Summary Admission/Discharge Info Admit Date/Time May 04, 2017 at 22:02 Discharge Date/Time May 09, 2017 Discharge Diagnosis #1 Dizziness possibly secondary dehydration-resolved #2 BOYD with Hyperkalemia : resolved #3 Neck pain likely possibly related to muscle spasm #4 Diabetes mellitus type 2: fair control Continue home metformin #5 Hypertension-stable Continue home meds #6 Brain mass MRI shows a 6 x 4 mm enhancing lesion in the right precentral gyrus Neurosurgery and oncology consults appreciated, CT of the chest and abdomen show no malignancy, recommendation of neurosurgery is for outpatient monitoring of the mass, no indication for any further workup at this time #7 Dyslipidemia Continue home statin Patient Condition: Good Hospital Course Patient is a 62-year-old male presents with neck pain and weakness for the past 3 weeks. Patient states that he has been noticing aching pain in his neck as well as shoulders. Also states that he has been weak. Patient had acute kidney injury which resolved with IV fluids, patient was seen by nephrology. Patient had an MRI with contrast of the brain that showed a 6 x 4 mm enhancing lesion in the right precentral gyrus. Renal ultrasound was negative as was carotid ultrasound. CT of the neck showed degenerative change of the spine. Patient's neck pain resolved as his weakness. Patient was seen by neurosurgery oncology regards to brain mass, patient had a CT chest and abdomen that was negative for any malignancy. Neurosurgery recommendation was for outpatient monitoring as there is no indication for any surgery or biopsy at this time due the small mass size. On day of discharge patient vitals labs physical exam are stable, of note A1c was stable at 7.0. Patient had no acute complaints on the day of discharge and questions are answered. Home Meds Reported Medications Lisinopril* (Lisinopril*) 40 Mg Tablet, 40 MG PO DAILY, #30 TAB 05/04/17 Aspirin* (Aspirin* EC) 81 Mg Tablet.dr, 81 MG PO DAILY, TAB 02/23/15 Metformin Hcl* (Metformin Hcl*) 500 Mg Tablet, 500 MG PO BID WITH MEALS, TAB 02/23/15 Simvastatin (Simvastatin) 20 Mg Tablet, 20 MG PO HS, TAB 02/23/15 Discontinued Reported Medications Lisinopril* (Lisinopril*) 5 Mg Tablet, 5 MG PO DAILY, TAB 02/23/15 Follow-up Plan Follow with PCP in 1-2 weeks, follow-up with neurosurgery for periodic observation and management of brain mass Primary Care Provider Not On Staff Doctor Time spent on discharge: > 30 minutes MICHAEL ALANIS May 09, 2017 16:34
--- NOTE | 2017-05-09 17:14 | CONS ---
Date/Time of Note Date/Time of Note DATE: 05/09/17 TIME: 17:07 Assessment/Plan Assessment/Plan Additional Assessment/Plan Pt does not seem likely to have a malignant tumor. Follow up of the imaging of the small lesion in the brain is suggested in a few months. I agree with the neuro surgery opinion and would not advocate brain biopsy at this time. Consultation Date/Type/Reason Admit Date/Time May 04, 2017 at 22:02 Date of Consultation: May 09, 2017 Type of Consultation: oncology Reason for Consultation brain lesion Referring Provider: MICHAEL ALANIS Pt admitted for dizziness and neck pain. He has been treated for dehydration and is feeling better. He is going to be discharged today. Neurosurgeon reviewed the imaging studies and suggested f/u for the lesion that is ~0.6 cm in maximal dimension. CT's of the body were negative for lesions suspicious for tumor. Constitutional: no complaints Eyes: no complaints ENT: no complaints Respiratory: no complaints, pleuritic pain Cardiovascular: no complaints Gastrointestinal: no complaints Genitourinary: no complaints Skin: no complaints Neurologic: no complaints Endocrine: no complaints Lymphatic: no complaints Psychological: anxiety Past Medical History Medical History: no pertinent history, diabetes, hypertension, renal disease Past Surgical History Past Surgical Hx: no surgical history, other (hernia repair) Social History Alcohol Use: none Smoking Status: Former smoker Drug Use: none Exam/Review of Systems Vital Signs Vitals Vital Signs Date Time Temp Pulse Resp B/P Pulse Ox O2 Delivery O2 Flow Rate FiO2 05/09/17 16:12 76 05/09/17 15:09 97.0 17 132/61 98 Intake and Output 05/08/17 05/08/17 05/09/17 15:00 23:00 07:00 Intake Total 950 ml 1180 ml Output Total 450 ml 240 ml Balance -450 ml 710 ml 1180 ml Exam Constitutional: alert, oriented Head: normocephalic Eyes: nl conjunctiva ENMT: nl external ears & nose Neck: supple Respiratory: clear to auscultation Cardiovascular: regular rate and rhythm Gastrointestinal: nl liver, spleen, non-tender, soft Musculoskeletal: nl extremities to inspection Results Result Diagram: 05/09/17 0751 05/09/17 0751 Results 24 hrs Laboratory Tests Test 05/08/17 18:11 05/08/17 20:36 05/09/17 07:51 05/09/17 11:46 Bedside Glucose 130 137 103 89 White Blood Count 7.2 Red Blood Count 3.59 L Hemoglobin 12.2 L Hematocrit 35.0 L Mean Corpuscular Volume 97.5 Mean Corpuscular Hemoglobin 34.0 H Mean Corpuscular Hemoglobin Concent 34.9 Red Cell Distribution Width 11.5 Platelet Count 201 Mean Platelet Volume 10.9 H Neutrophils % 66.2 Lymphocytes % 21.1 Monocytes % 9.3 Eosinophils % 2.6 Basophils % 0.4 Nucleated Red Blood Cells % 0.0 Neutrophils # 4.8 Lymphocytes # 1.5 Monocytes # 0.7 Eosinophils # 0.2 Basophils # 0.0 Nucleated Red Blood Cells # 0.0 Sodium Level 142 Potassium Level 4.4 Chloride Level 99 Carbon Dioxide Level 27 Anion Gap 20 H Blood Urea Nitrogen 21 H Creatinine 0.86 Glucose Level 98 Calcium Level 9.9 Phosphorus Level 3.5 Magnesium Level 1.7 Medications Medications Current Medications Ondansetron HCl (Zofran Inj) 4 mg Q6H PRN IV NAUSEA AND/OR VOMITING; Start at 00:00 Acetaminophen (Tylenol Tab) 650 mg Q6H PRN PO PAIN LEVEL 1-3 OR FEVER; Start at 00:00 Aspirin (Halfprin) 81 mg DAILY PO Last administered on 05/09/17t 08:39; Admin Dose 81 MG; Start 05/05/17 at 09:00 Diagnostic Test (Pha) (Accu-Chek) 1 ea 02 XX ; Start 05/06/17 at 02:00 Diagnostic Test (Pha) (Accu-Chek) 1 ea 02 XX ; Start 05/06/17 at 02:00 Miscellaneous Information 1 ea NOTE XX ; Start 05/05/17 at 09:00 Glucose (Glutose) 15 gm Q15M PRN PO DECREASED GLUCOSE; Start 05/05/17 at 09:00 Glucose (Glutose) 22.5 gm Q15M PRN PO DECREASED GLUCOSE; Start 05/05/17 at 09: 00 Dextrose (D50w Syringe) 25 ml Q15M PRN IV DECREASED GLUCOSE; Start 05/05/17 at 09:00 Dextrose (D50w Syringe) 50 ml Q15M PRN IV DECREASED GLUCOSE; Start 05/05/17 at 09:00 Glucagon (Glucagen) 1 mg Q15M PRN IM DECREASED GLUCOSE; Start 05/05/17 at 09:00 Glucose (Glutose) 15 gm Q15M PRN BUCCAL DECREASED GLUCOSE; Start 05/05/17 at 09 :00 Insulin Glargine 13 unit 13 unit DAILY@08 SC Last administered on 05/09/17 07: 56; Admin Dose 13 UNIT; Start 05/05/17 at 09:30 Sodium Chloride (1/2 NS) 1,000 ml @ 20 mls/hr Q24H IV Last administered on 15:50; Admin Dose 20 MLS/HR; Start 05/05/17 at 10:30 Cyclobenzaprine HCl (Flexeril) 5 mg Q8H PRN PO neck pain; Start 05/05/17 at 13: 00 Atorvastatin Calcium (Lipitor) 20 mg DAILY@21 PO Last administered on 20:34; Admin Dose 20 MG; Start 05/05/17 at 21:00 Pantoprazole (Protonix Tab) 40 mg DAILY@06 PO Last administered on 05/09/17 05 :35; Admin Dose 40 MG; Start 05/06/17 at 06:00 Amoxicillin/ Clavulanate Potassium (Augmentin) 875 mg BID PO Last administered on 05/09/17 08:39; Admin Dose 875 MG; Start 05/06/17 at 13:00; Stop 05/16/17 at 12:59 Metoprolol Tartrate 25 mg 25 mg BID PO Last administered on 05/09/17 08:40; Admin Dose 25 MG; Start 05/07/17 at 12:00 Magnesium Sulfate (Magnesium Sulfate 2 Gm/50 ml) 50 ml @ 25 mls/hr ONCE ONCE IVPB Last administered on 05/09/17 15:50; Admin Dose 25 MLS/HR; Start at 16:00; Stop 05/09/17 at 17:59 ALICJA LUIS MD May 09, 2017 17:13
[2017-05-10 16:38] LABS: PSA, FREE 0.2 ng/mL
--- NOTE | 2017-05-14 05:02 | CONS ---
DATE OF ADMISSION: 05/04/2017 DATE OF CONSULTATION: 05/08/2017 REQUESTING PHYSICIAN: Jeannette Alfonso MD. REASON FOR CONSULTATION: Brain lesion. HISTORY OF PRESENT ILLNESS: The patient is a 62-year-old male who was transferred from an outside hospital with reported complaints of neck pain and weakness for the past week. He noted pain in the base of the neck as well as his shoulders and generalized weakness. He denies any nausea, vomiting, fevers or chills. This was the patient's main diagnosis; however, the patient had explained to me that he had been feeling some dizziness specifically when he leaned over, and had some associated pain at the base of the neck and between his shoulder blades. He denies any headache, numbness, tingling or weakness. He denied any bowel or bladder incontinence. The patient ended up having a CT of the soft tissues of the neck which showed some degenerative changes with foraminal narrowing but no severe stenosis or evidence of subluxation. Because of the dizziness the patient had an MRI of the brain, and there was noted to be a 7-mm T2/FLAIR signal hyperintensity in the right precentral gyrus. A follow-up MRI with contrast was performed which showed some enhancement of this small lesion, it was measured at 6 x 4 mm on the follow-up study. The patient currently states that he feels better and no longer has any dizziness, and his neck pain is resolving. He states he currently otherwise feels well. He currently denies any headache, nausea, vomiting, numbness, tingling, weakness or any seizure activity. He denies any cognitive or speech difficulty. PAST MEDICAL HISTORY: Significant hypertension and diabetes. The patient has a history of chronic kidney disease. SOCIAL HISTORY: The patient is . He occasionally drinks alcohol. He is a smoker. PAST SURGICAL HISTORY: Significant for a left inguinal hernia repair. FAMILY HISTORY: Mother and sibling has a history of hypertension and diabetes. ALLERGIES: NO KNOWN DRUG ALLERGIES. MEDICATION: Reviewed. See MAR. REVIEW OF SYSTEMS: A 12-point review of systems was performed. Pertinent positives and negatives listed in the history of present illness and below. CONSTITUTIONAL: Denies any fevers, chills or weight loss. HEMATOLOGIC: Denies any history of easy bruising or bleeding. All other per history of present illness. PHYSICAL EXAMINATION: VITAL SIGNS: The patient's temperature was 98.6, pulse 57, respirations 18, blood pressure 136/65, oxygen saturations 97 percent on room air. GENERAL APPEARANCE: The patient is a well-developed and well- nourished male who is actually standing and ambulating with an IV pole. HEENT: Normocephalic and atraumatic. NECK: Supple and nontender with no Lhermitte's or Spurling sign. There was no obvious kyphosis or deformity. CHEST: Clear to auscultation bilaterally. CARDIAC: Regular rate and rhythm. ABDOMEN: Nontender and nondistended. Soft. MUSCULOSKELETAL: Normal tone and bulk. Motor exam 5/5 bilateral upper and lower extremities. NEUROLOGIC: The patient is awake, alert and oriented x3. Fluent speech. Follows commands appropriately. Normal attention and concentration. Intact remote, immediate and recent memory. Cranial nervies II through XII were tested serially and are intact. He had no pronator drift. Intact sensation to light touch and a normal gait. Reflexes were diminished diffusely with no pathologic reflexes such as clonus, Gonzalez's sign or Babinski. LABORATORY: White count was 7.6, hemoglobin 12.1, platelet count 193,000. Sodium was 141, BUN and creatinine 28 and 0.88, with a glucose of 101. IMAGING: Review of radiographic results, I reviewed the patient's MRI with and without contrast performed on 05/06/2017 and 05/07/2017 respectively, as well as the radiologist results as interpreted in the history of present illness. ASSESSMENT AND PLAN: The patient is a 62-year-old male with a small right frontal lesion. I discussed the patient's signs, symptoms, physical exam and radiographic findings with him and his . The patient has a small lesion, it is unclear what this lesion. He does not appear to have multiple lesions. It is possible this could be a metastasis, but infectious etiology such as a cyst or [____] or some type of other lesion remain possible. This is a very small lesion and the patient does not appear to be symptomatic from this. The possibility for a metastatic lesion is most likely. Therefore I would recommend a metastatic workup. I would not recommend biopsy at this time though the patient should be followed with serial MRIs and should the lesion significantly increase in size and a metastatic workup is negative then biopsy would be reasonable at that time. The patient was advised to follow up with his PMD for monitoring of this, and should there be significant change or otherwise require neurosurgical intervention the patient can be referred through his primary physician and his insurance. This was clearly conveyed to the patient regarding the necessity of follow up and monitoring of this lesion. The patient expressed understanding and agreement with this plan of care. Thank you for allowing us to participate in the care of this patient. Dictated By: Jacques Biggs MD /nitin/oseas /Document#: [id number]
== END 2017-05-09 19:23 | disposition home or self-care (01) | DRG 683 ==
LOC: TEL 22:02
PROVIDERS: ADMIT Family Medicine; ATTEND Family Medicine
DX: I12.9 Hypertensive chronic kidney disease with stage 1 through stage 4 chronic kidney disease, or unspecified chronic kidney disease (principal); N17.9 Acute kidney failure, unspecified; E11.22 Type 2 diabetes mellitus with diabetic chronic kidney disease; E87.5 Hyperkalemia; N18.3 Chronic kidney disease, stage 3 (moderate); M62.838 Other muscle spasm; E86.0 Dehydration; G93.9 Disorder of brain, unspecified; M47.892 Other spondylosis, cervical region; Z79.82 Long term (current) use of aspirin; Z79.84 Long term (current) use of oral hypoglycemic drugs
CPT/HCPCS: 70490; 70551; 70552; 71260; 74177; 76775; 80048; 80053; 80061; 81001; 82105; 82378; 82550; 82553; 82962; 83036; 83735; 84100; 84153; 84154; 84155; 84300; 84443; 84484; 85025; 86301; 93306; 93880; C9113; J1815; J3475; Q9967

== ENCOUNTER 2017-05-13 11:49 | Emergency (ER) | payer OTHER ==
[~2017-05-13] VITALS: Ht 175.3 cm; Wt 70.0 kg
[~2017-05-13 11:49] MED LIST changes: -LISI-313 PO; +LISI40TA9 PO
[2017-05-13 11:55] VITALS: Ht 175.3 cm; Wt 70.0 kg
--- NOTE | 2017-05-13 13:07 | ERD ---
ER Documentation Chief Complaint Date/Time DATE: 05/13/17 TIME: 12:58 Chief Complaint NEEDS NOTE TO GO BACK TO WORK , DENIES ANY PAIN HPI This is a 62 year old male presenting to ER requesting a work note to return to work without restriction. Patient was seen in the hospital from 05/04/2017-2016 for acute renal failure and neck pain. Patient was discharged home. Now requesting a work note without restrictions. A CT neck was done at last visit 1 week ago that showed degenerative changes and carotid vascular calcifications. Patient currently denies any stiffness or pain. Full range of motion. No fevers or chills. No chest pain, shortness of breath or difficulty breathing. ROS All systems reviewed and are negative except as per history of present illness. Medications Home Meds Reported Medications Lisinopril* (Lisinopril*) 40 Mg Tablet, 40 MG PO DAILY, #30 TAB 05/04/17 Aspirin* (Aspirin* EC) 81 Mg Tablet.dr, 81 MG PO DAILY, TAB 02/23/15 Metformin Hcl* (Metformin Hcl*) 500 Mg Tablet, 500 MG PO BID WITH MEALS, TAB 02/23/15 Simvastatin (Simvastatin) 20 Mg Tablet, 20 MG PO HS, TAB 02/23/15 Allergies Allergies: Coded Allergies: No Known Allergies (Verified Allergy, Unknown, 05/13/17) PMhx/Soc History of Surgery: Yes (left inguinal hernia repair) Anesthesia Reaction: No Hx Neurological Disorder: No Hx Respiratory Disorders: No Hx Cardiac Disorders: Yes (HTN) Hx Psychiatric Problems: No Hx Miscellaneous Medical Probl: Yes (hyperlipidemia) Hx Alcohol Use: Yes (occasional) Hx Substance Use: No Hx Tobacco Use: Yes Smoking Status: Current every day smoker Physical Exam Vitals Vital Signs Date Time Temp Pulse Resp B/P Pulse Ox O2 Delivery O2 Flow Rate FiO2 05/13/17 11:55 98.2 70 18 167/63 98 Physical Exam Const: No acute distress, alert Head: Atraumatic Eyes: Normal Conjunctiva ENT: Normal External Ears, Nose and Mouth. Neck: Full range of motion..~ No meningismus. Resp: Clear to auscultation bilaterally Cardio: Regular rate and rhythm, no murmurs Abd: Soft, non tender, non distended. Normal bowel sounds Skin: No petechiae or rashes Back: No midline or flank tenderness Ext: No cyanosis, or edema Neur: Awake and alert Psych: Normal Mood and Affect Procedures/MDM MDM: This is a 62-year-old male resenting to the emergency department for work note. Patient was seen here last week from 05/04/2017 - 05/09/2017 for multiple reasons including acute renal failure and neck pain. Patient requesting a work note without restrictions. Patient has full mobility to neck and back. Denies pain or neck stiffness. Vital signs are stable. Patient is appropriate for outpatient management and will given a work note. Instructed patient to follow-up with primary care provider for any new or worsening symptoms. Return to ED for any high fever, chest pain, difficulty breathing, shortness breath, wheezing, vomiting, diarrhea, abdominal pain or any new or worsening symptoms. Patient verbalizes understanding. All questions answered at discharge. Ecuadorean translation used during this encounter. Departure Diagnosis: Primary Impression: Neck pain Additional Impression: Examination for, follow-up Condition: Stable Patient Instructions: Back Pain (Acute Or Chronic) [facility] Usted se tovar hecho un examen mdico de control que le indica que no est en mee condicin que requiera tratamiento urgente en el Departamento de Emergencia. Un estudio ms profundo y el tratamiento de lares condicin pueden esperar sin ningn riesgo hasta que usted sea atendida/o en el consultorio de lares mdico o mee cl abhishek. Es responsabilidad suya arreglar mee humble para el seguimiento del rogers. MANEJO DE CONDICIONES NO URGENTES EN EL FUTURO 1) Si usted tiene un mdico de atencin primaria: Usted debera llamar a lares mdico de atencin primaria antes de venir al departamento de emergencia. Despus de las horas de consultorio, lares doctor o lares asociado/a est disponible por telfono. El mdico o enfermero de jigar en el servicio telefnico puede asesorarle por andrea medio para atender el problema, o rogers contrario se puede programar mee humble. 2) Si usted no tiene un mdico de atencin primaria: Llame al mdico o clnica de referencia que aparece abajo ketan las horas de consultorio para hacer mee humble para que le vean. CLINICAS: [facility] [phone] [facility] [phone] [facility] [phone] [place] [id number] [phone] [place] [address] [phone] [facility]. [phone] [facility] () Usted se tovar hecho un examen mdico de control que le indica que no est en mee condicin que requiera tratamiento urgente en el Departamento de Emergencia. Un estudio ms profundo y el tratamiento de lares condicin pueden esperar sin ningn riesgo hasta que usted sea atendida/o en el consultorio de lares mdico o mee cl abhishek. Es responsabilidad suya arreglar mee humble para el seguimiento del rogers. MANEJO DE CONDICIONES NO URGENTES EN EL FUTURO 1) Si usted tiene un mdico de atencin primaria: Usted debera llamar a lares mdico de atencin primaria antes de venir al departamento de emergencia. Despus de las horas de consultorio, lares doctor o lares asociado/a est disponible por telfono. El mdico o enfermero de jigar en el servicio telefnico puede asesorarle por andrea medio para atender el problema, o rogers contrario se puede programar mee humble. 2) Si usted no tiene un mdico de atencin primaria: Llame al mdico o condado institucions de referencia que aparece abajo ketan las horas de consultorio para hacer mee humble para que le vean. SI USTED NO PUEDE PAGAR PARA ITZ UN MEDICO puede ir a: [facility] [address] [place] [address] [facility] [address] [place] [address] [facility] [address] [place] [address] [facility] [address] [place] [address] Additional Instructions: Visite a lares mdico maana para un EXAMEN.Regrese a estas instalaciones si no se mejora santiago esperbamos o santiago le dijimos. Regresar a ED por fiebre shellie, dolor en el pecho, dificultad para respirar, respiracin entrecortada, sibilancias, vmitos, diarrea, dolor abdominal o cualquier sntoma nuevo o que empeora. SELAM BARCENAS NP May 13, 2017 13:07
== END 2017-05-13 12:30 | disposition home or self-care (01) ==
LOC: FTE 11:49
DX: M54.2 Cervicalgia (principal); I10 Essential (primary) hypertension; F17.210 Nicotine dependence, cigarettes, uncomplicated; Z79.82 Long term (current) use of aspirin; Z79.84 Long term (current) use of oral hypoglycemic drugs
CPT/HCPCS: 99282